=== PATIENT | female | born 1970 | race Asian ===

== ENCOUNTER 2018-07-02 12:55 | Outpatient (REF) | payer OTHER, SELFPAY ==
[2018-07-03 16:09] LABS: Chlamydia Result Negative; GC Result Negative; Specimen Description CERVIX
== END 2018-07-02 13:15 ==
LOC: LBN 12:55
PROVIDERS: PCP Nurse Practitioner; Visit Provider Nurse Practitioner Women's Health
DX: Z11.3 Encounter for screening for infections with a predominantly sexual mode of transmission (principal); R31.9 Hematuria, unspecified
CPT/HCPCS: 87077; 87491; 87591; 87086; 87186

== ENCOUNTER 2018-12-09 16:32 | Outpatient (CLI) | payer OTHER, SELFPAY ==
[2018-12-09 17:05] LABS: Hemoglobin A1C 5.8 % (4.5-6.2)
[2018-12-09 18:11] LABS: Cholesterol 194 mg/dL (50-200); HDL Cholesterol 66 mg/dL (40-60); LDL CHOLESTEROL 105 mg/dL (<100); TSH (W/Ref FT4) 1.53 uIU/mL (0.358-3.74); Triglyceride 128 mg/dL (30-150)
== END 2018-12-09 16:52 ==
PROVIDERS: PCP Nurse Practitioner; Visit Provider Obstetrics & Gynecology Gynecology
DX: Z00.00 Encounter for general adult medical examination without abnormal findings (principal); Z13.220 Encounter for screening for lipoid disorders; Z13.1 Encounter for screening for diabetes mellitus; Z13.29 Encounter for screening for other suspected endocrine disorder
CPT/HCPCS: 36415; 80061; 83721; 83036; 84443

== ENCOUNTER 2018-12-10 16:34 | Outpatient (CLI) | payer OTHER, SELFPAY ==
--- NOTE | 2018-12-10 15:00 | DI.MAMMO_ITS ---
SYMPTOM/DIAGNOSIS: SCREENING MAMMOGRAMS: Mammograms were interpreted according to the usual protocol including computer analysis with CAD system, tomosynthesis and C view imaging. The breasts are heterogeneously dense. No dominant mass or clumped microcalcification is identified in either breast. The current examination is compared with the previous examinations including 10/2017 and there has been no gross interval change in appearance in comparison with the previous studies. CONCLUSION: No specific evidence of malignancy at this time. Routine screening examinations are suggested at yearly intervals in this age group according to the ACS/ACR guidelines. Category 1. Breast density, category C. MQSA ASSESSMENT OF FINDINGS: Negative. Category 1. Patient will receive a letter notifying them of these results. Bi-RADS category C. The breasts are heterogeneously dense, which may obscure small masses.
== END 2018-12-10 16:54 ==
PROVIDERS: PCP Nurse Practitioner; Visit Provider Obstetrics & Gynecology Gynecology
DX: Z12.31 Encounter for screening mammogram for malignant neoplasm of breast (principal)
CPT/HCPCS: 77063; 77067

== ENCOUNTER 2019-10-27 02:07 | Outpatient (CLI) | payer OTHER, SELFPAY ==
--- NOTE | 2019-10-27 | DI.RAD_ITS ---
EXAM: XR LUMBAR SPINE COMPLETE INDICATION: DORSALGIA OF LUMBOSACRAL REGION, M54.5. COMPARISON: No exams were available for comparison TECHNIQUE: 2D digital imaging was performed. FINDINGS: There is normal alignment of the lumbar spine. No acute fracture or subluxation is seen. There are mild degenerative changes in the lumbar spine characterized by small endplate osteophytes and degener ative changes of the facets in the lower lumbar spine. There is no spondylolysis or spondylolisthesi s. The soft tissues are unremarkable. IMPRESSION: Mild degenerative changes in the lumbar spine.
== END 2019-10-27 02:27 ==
PROVIDERS: PCP Nurse Practitioner; Visit Provider Nurse Practitioner
DX: M54.5 Low back pain (principal); M47.816 Spondylosis without myelopathy or radiculopathy, lumbar region
CPT/HCPCS: 72110

== ENCOUNTER 2019-11-16 13:20 | Outpatient (CLI) | payer OTHER, SELFPAY ==
--- NOTE | 2019-11-16 11:15 | DI.RAD_ITS ---
EXAM: XR HIP RT COMPLETE AP PELVIS INDICATION: HIP PAIN. COMPARISON: No exams were available for comparison TECHNIQUE: 2D digital imaging was performed. FINDINGS: There are mild degenerative changes of the right hip. No acute fracture or dislocation is present. The bones are normally mineralized. Soft tissues are unremarkable. DATA REPOSITORY: RADIATION DOSE DELIVERED:
== END 2019-11-16 13:40 ==
PROVIDERS: PCP Nurse Practitioner; Visit Provider Physician Assistant
DX: M25.551 Pain in right hip (principal)
CPT/HCPCS: 73502

== ENCOUNTER 2020-01-22 02:11 | Outpatient (CLI) | payer OTHER, SELFPAY ==
--- NOTE | 2020-01-22 | DI.MAMMO_ITS ---
EXAM: MG MAMMO SCREENING CLINICAL HISTORY: SCREENING, Z12.31 TECHNIQUE: Mammograms were interpreted according to the usual protocol including computer analysis w [employer] CAD system, tomosynthesis and C-view imaging. COMPARISON: FINDINGS: The breasts are of moderate to high density. No dominant mass or clumped microcalcification is ident ified in either breast. Current examination is compared with multiple previous studies including Dec and there has been no gross interval change appearance comparison with the previous examinati ons. IMPRESSION: No specific evidence of malignancy at this time. Routine screening examinations are suggested at yea rly intervals in this age group according to the ACS ACR guidelines. BI-RADS Cat 1 - Negative: Breast Density - Category C - Heterogeneously dense:
== END 2020-01-22 02:31 ==
PROVIDERS: PCP Nurse Practitioner; Visit Provider Nurse Practitioner
DX: Z12.31 Encounter for screening mammogram for malignant neoplasm of breast (principal)
CPT/HCPCS: 77063; 77067

== ENCOUNTER 2020-02-05 19:42 | Outpatient (CLI) | payer OTHER, SELFPAY ==
--- NOTE | 2020-02-05 | DI.US_ITS ---
EXAM: US PELVIS TRANSVAGINAL CLINICAL HISTORY: IRREGULAR PERIODS, N92.6 TECHNIQUE: Transabdominal and transvaginal ultrasound performed using standard protocol. COMPARISON: No exams were available for comparison FINDINGS: The transvaginal images are limited by uterine retroversion. The uterus measures 8 cm in length by 3 cm AP by 4.2 cm transverse. No fibroids are seen. The endometrial stripe is not well seen and measur es approximately 10 millimeters in thickness. The right ovary is normal in size and appearance. The l eft ovary was obscured by bowel gas. No cysts or masses are identified. The kidneys appear normal. Th ere is no evidence of free fluid. IMPRESSION: Limited visualization of the endometrial stripe. Normal sized uterus. Normal appearing right ovary. The left ovary was not able to be visualized, obscured by bowel gas. DATA REPOSITORY:
== END 2020-02-05 20:02 ==
PROVIDERS: PCP Nurse Practitioner; Visit Provider Nurse Practitioner
DX: N92.6 Irregular menstruation, unspecified (principal)
CPT/HCPCS: 76830; 76856

== ENCOUNTER 2020-02-09 18:07 | Emergency (ER) | payer OTHER, SELFPAY ==
[2020-02-09 18:14] VITALS: BP 124/88; PULSE 96; RESP 20; TEMP 37; O2SAT 100
--- NOTE | 2020-02-09 18:20 | W.ED.GENAD ---
Discharge Plan Disposition Patient Disposition: HOME Condition: Good Discharge Details Chief Complaint: EyeProblem Clinical Impression: Corneal abrasion Primary Care Provider: Ericka Rios ED Provider: Flory Rouse Home Meds and New Rx's Prescriptions: Continued albuterol sulfate 90 mcg/actuation HFA aerosol inhaler 2 puff IH QID RF: 0 metronidazole 500 mg tablet 500 mg PO Q12H Qty: 14 RF: 0 fluconazole 150 mg tablet 150 mg PO Q3D Qty: 2 RF: 1 valacyclovir 500 mg tablet 500 mg PO BID RF: 0 mometasone [Elocon] 0.1 % cream 1 applic TP DAILY RF: 0 fluticasone propion-salmeterol [Advair Diskus] 1 EACH blister with device 1 ea Inhalation DAILY RF: 0 mesalamine [Lialda] 1.2 G tablet,delayed release (DR/EC) 1.2 g PO DAILY RF: 0 Discharge Instructions Instructions: Erythromycin (Into the eye), Corneal Abrasion (ED) Additional Instructions: You may use Tylenol and/or ibuprofen as needed for discomfort. Cool compress to help with swelling and discomfort. Please apply erythromycin ointment as instructed by nursing staff every 3-4 hours. Please call [facility] tomorrow to schedule follow-up appointment. If you develop fever/chills, visual changes, purulent discharge or the new/worsening symptom please seek care urgently once again. Referrals: [facility] [Outside] Discharge Data Discharge Date/Time-TO BE ENTERED AT DEPARTURE: 02/09/20 18:53 Medical Decision Making Patient is a pleasant 49-year-old female presents today with chief complaint of left eye pain. She reports this morning when she was in the shower she believes that she may have rubbed her eye rather vigorously and since that time has been having disc. She reports that she did contact her investigation clerk who advised trying eye drops. She reports that she did use these but found that the discomfort got worse. She denies any fevers or chills. No visual changes. Endorses tearing of the eyes. Is noted that they have felt itching, has been rubbing them, pain is worse with blinking. Tetanus is up-to-date. Patient does not use corrective lenses. She has had LASEK eye surgery historically. No contacts. On exam, patient does appear uncomfortable. She does have swelling to the upper lid clear tearing is noted. Lid was everted and no foreign body or laceration was noted. Tetracaine was applied and patient feels much improved. Fluorescein was used for further examination and a corneal abrasion was noted. No foreign body or debris was noted. We will begin the patient on erythromycin ointment. She will [facility]. She was given return precautions. All her questions and concerns were addressed and she is in agreement this plan. HPI General Mode of arrival: ambulatory. Date/Time Provider Initiated Documentation: 02/09/20 18:10. Limitations to Documentation: no limitations. Information obtained by: patient and RN notes reviewed. History of Present Illness 49 year old F presents to the emergency department with the chief complaint of Left eye pain and tearing, described as moderate, with intensity rated at 7. Quality is described as other (Irritated), and is localized to the eyes. Patient reports no radiation. Patient started experiencing this hour(s) and it has been constant. No relieving factors improve symptom(s), No exacerbating factors reported . Patient notes no other symptoms.. Patient did receive the following treatments prior to arrival, none Related Data Home Medications Medication Instructions Recorded Confirmed fluticasone propion-salmeterol 1 ea INHALATION DAILY 07/12/14 02/09/20 [Advair Diskus] mesalamine [Lialda] 1.2 g PO DAILY 07/12/14 02/09/20 albuterol sulfate 90 mcg/actuation 2 puff IH QID 07/02/18 02/09/20 aerosol inhaler fluconazole 150 mg tablet 150 mg PO Q3D #2 tab 04/29/19 02/09/20 metronidazole 500 mg tablet 500 mg PO Q12H #14 tab 09/28/19 02/09/20 mometasone 0.1 % topical cream 1 applic TP DAILY 11/02/19 02/09/20 valacyclovir 500 mg tablet 500 mg PO BID 11/02/19 02/09/20 Previous Rx's Medication Instructions Recorded fluconazole 150 mg tablet 150 mg PO Q3D #2 tab 04/29/19 metronidazole 500 mg tablet 500 mg PO Q12H #14 tab 09/28/19 Allergies Allergy/AdvReac Type Severity Reaction Status Date / Time cat dander Allergy Mild Wheezing Verified 02/09/20 18:16 latex Allergy Mild itching Verified 02/09/20 18:16 nickel Allergy Mild Itching Verified 02/09/20 18:16 Sulfa (Sulfonamide Allergy Hives, Unverified 02/09/20 18:16 Antibiotics) wheezing General Stated Complaint: EyeProblem MEY: 3 Review of Systems Constitutional Constitutional: Reports as per HPI, Denies chills, Denies fatigue, Denies fever(s) and Denies headache(s) Eyes Eyes: Reports as per HPI ENT Ears, Nose, Mouth, and Throat: Denies headache(s) Cardiovascular Cardiovascular: Reports as per HPI, Denies chest pain and Denies lightheadedness Respiratory Respiratory: Denies cough Integumentary/Breasts Skin/Breast: Reports as per HPI, Denies rash, Denies skin pain and Denies skin swelling Neurologic Neurologic: Denies headache(s) and Denies radicular pain Endocrine Endocrine: Denies fatigue [facility] Social History (Updated 01/17/19 @ 09:34 by Martha Zabala MD) Smoking/Tobacco Use Status: Former Tobacco Use Alcohol Intake: never Drug use: Never Substance use type: does not use Number of Children: 4 current occupation: [employer] Current gender identity: female Do you feel safe at home: Yes Do you feel safe in your relationship?: Yes Additional Social history: Children: Paul 24yo, Huseyin - 21 poem writer in [place], Osmin 15yo ADHD, Elyssa 10yo. Female Reproductive History Menstrual control method: permanent sterilization (tubal 2007) History History 4 Para 4 Hx # Term Pregnancies Multiple births Hx # Pregnancies Ectopic pregnancies AB induced Hx Number of Living Children AB spontaneous Exam Const General: cooperative, healthy appearing, comfortable, no acute distress, well developed and well groomed Nutritional Appearance: average body habitus and well nourished Orientation: alert, awake and oriented x3 HENMT Head: normal to inspection, normocephalic and atraumatic Ears: hearing grossly normal bilaterally and external ears normal General nose exam: external nose normal and nares normal Face and sinus: normal facial exam and face symmetric Mouth: oral mucosae normal, lip normal and moist mucous membranes Eyes General: appearance abnormal, both eyes (swelling of left upper eyelid, patient tearing) Visual Barbosa: normal visual barbosa by confrontation Alignment and Position: alignment normal and position normal Periorbital: periorbital findings normal Eyelids: abnormal eyelids and eyelid abnormality left upper eyelid swelling; without erythema and nontender Cornea: corneas abnormal on the left fluorescein used and abrasion central; no contact lens present and without diffuse punctate uptake and fluorescein used Pupils: PERRL and normal by confrontation EOM: EOM intact bilaterally Eyes/upper lids images: 1. area of flouroscein uptake, no FB noted Neck Neck: normal visual inspection and no lymphadenopathy Resp Effort & Inspection: normal respiratory effort, able to speak in complete sentences and no respiratory distress Skin General skin exam: no rashes or lesions noted Neuro General: patient alert, patient awake and patient oriented x3 Cranial Nerves: CN's II-XI intact bilaterally Cognition: normal cognition Speech: speech normal Gait: normal gait Psych Appearance: grossly normal and well kempt Mental Status: mental status grossly normal Speech and Movement: speech and movement normal Course Vital Signs Vital signs: Vital Signs Temperature 37 C 02/09/20 18:14 Pulse 96 H 02/09/20 18:14 Respiratory Rate 20 02/09/20 18:14 Blood Pressure 124/88 02/09/20 18:14 Pulse Oximetry 100 02/09/20 18:14 Temperature 37 C 02/09/20 18:14 Temperature Source Temporal Artery Scan 02/09/20 18:14 Pulse 96 H 02/09/20 18:14 Respiratory Rate 20 02/09/20 18:14 Respiratory Effort Non-Labored 02/09/20 18:16 Blood Pressure 124/88 02/09/20 18:14 Blood Pressure Position Sitting 02/09/20 18:14 Pulse Oximetry 100 02/09/20 18:14 Oxygen Delivery Method Room Air 02/09/20 18:14 Oxygen Flow Rate 0 02/09/20 18:14 Pain Level 7 02/09/20 18:14
[2020-02-09] MEDS: Erythromycin Ophth Oint 3.5 GM TUBE OS (18:45)
== END 2020-02-09 18:53 | disposition home or self-care (01) ==
PROVIDERS: Emergency Provider Physician Assistant; PCP Nurse Practitioner
DX: S05.02XA Injury of conjunctiva and corneal abrasion without foreign body, left eye, initial encounter (principal); X50.9XXA Other and unspecified overexertion or strenuous movements or postures, initial encounter
CPT/HCPCS: 99283

== ENCOUNTER 2020-02-10 06:58 | Outpatient (CLI) | payer OTHER, SELFPAY ==
[2020-02-10 07:48] LABS: Abs Immature Grans 0.01 k/cumm (0.0-0.09); Absolute Basophil Count 0.08 k/cumm (0.0-0.2); Absolute Eosinophil Count 0.49 k/cumm (0.0-0.7); Absolute Lymphocyte Count 1.64 k/cumm (1.2-3.4); Absolute Monocyte Count 0.65 k/cumm (0.11-0.7); Absolute Neutrophil Count 3.31 k/cumm (1.2-6.7); Basophils % 1.3; Eosinophils % 7.9; HCT 40.1 % (36.0-46.0); HGB 13.2 g/dL (12.0-15.5); Immature Grans % 0.2 %; Lymphocytes % 26.5; Mean Corp. HGB Concentration 32.9 g/dL (32.0-36.0); Mean Corpuscular Hemoglobin 29.3 pg (27.0-33.0); Mean Corpuscular Volume 88.9 fL (80-95); Mean Platelet Volume 9.6 fL (8.0-11.0); Monocytes % 10.5; Neutrophils % 53.6; Platelet Count 351 x1000/uL (130-400); RBC 4.51 m/cumm (4.00-5.20); RBC Distribution Width 13.8 % (11.7-14.6); White Blood Cell Count 6.18 k/cumm (4.4-10.8)
[2020-02-10 08:40] LABS: Iron 96 ug/dL (50-170)
[2020-02-10 08:53] LABS: ALT 22 U/L (14-59); AST 5 U/L (15-37); Albumin 3.9 g/dL (3.4-5.0); Alkaline Phosphatase 43 U/L (46-116); Anion Gap 4.5 mmol/L (3-11); BUN 12 mg/dL (7-18); Bilirubin, Total 0.5 mg/dL (0.2-1.0); CO2 30.5 mmol/L (21.0-32.0); CREATININE 0.81 mg/dL (0.55-1.02); Calcium 9.1 mg/dL (8.5-10.1); Calculated LDL 126 mg/dL (<100); Chloride 104 mmol/L (98-107); Cholesterol 215 mg/dL (<200); Ferritin 18 ng/mL (8-252); Glucose 94 mg/dL (74-106); HDL Cholesterol 64 mg/dL (40-60); Potassium 4.1 mmol/L (3.5-5.1); Sodium 139 mmol/L (136-145); TSH 3.02 uIU/mL (0.36-3.74); Total Protein 7.6 g/dL (6.4-8.2); Triglyceride 127 mg/dL (<150)
[2020-02-11 05:02] LABS: Vitamin D 25 Total 30.7 ng/ml (30-100)
== END 2020-02-10 07:18 ==
PROVIDERS: PCP Nurse Practitioner; Visit Provider Nurse Practitioner
DX: Z00.00 Encounter for general adult medical examination without abnormal findings (principal); Z13.220 Encounter for screening for lipoid disorders; R53.82 Chronic fatigue, unspecified
CPT/HCPCS: 36415; 80053; 80061; 82306; 82728; 83540; 84443; 85025

== ENCOUNTER 2020-04-06 18:03 | Outpatient (REF) | payer OTHER, SELFPAY ==
[2020-04-06 16:44] LABS: Bilirubin Negative (Negative); Blood Moderate (Negative); Clarity Clear (Clear); Glucose Negative (Negative); Ketones Negative (Negative); Leukocyte Esterase Negative (Negative); Nitrite Negative (Negative); Specific Gravity 1.015 (1.005-1.025); Urobilinogen 0.2 EU/dL (Up TO 0.2); pH 6.5 (5-8)
[2020-04-06 16:56] LABS: Bacteria Negative HPF (Negative); C & S Indicated? No; Casts Negative LPF (Negative); Crystals Negative HPF (Negative); Epithelial Cells Few HPF (Negative); Mucus Negative (Negative); WBC 0-2 HPF (0-5)
== END 2020-04-06 18:23 ==
LOC: LBN 18:03
PROVIDERS: PCP Nurse Practitioner; Visit Provider Nurse Practitioner Women's Health
DX: R30.0 Dysuria (principal)
CPT/HCPCS: 81003; 81015

== ENCOUNTER 2021-06-10 14:47 | Outpatient (REF) | payer OTHER, SELFPAY ==
[2021-06-10 15:06] LABS: Bilirubin Negative (Negative); Blood Large (Negative); Clarity Clear (Clear); Glucose Negative (Negative); Ketones Negative (Negative); Leukocyte Esterase Negative (Negative); Nitrite Negative (Negative); Urobilinogen 0.2 EU/dL (Up TO 0.2); pH 6.5 (5-8)
[2021-06-10 15:15] LABS: Bacteria Negative HPF (Negative); C & S Indicated? No; Crystals Negative HPF (Negative); Epithelial Cells Few HPF (Negative); Mucus Negative (Negative); RBC >50 HPF (0-2); WBC 0-2 HPF (0-5)
== END 2021-06-10 14:48 | disposition home or self-care (01) ==
LOC: LBN 14:47
PROVIDERS: PCP Nurse Practitioner; Visit Provider Nurse Practitioner Family
DX: N76.0 Acute vaginitis (principal); N39.0 Urinary tract infection, site not specified
CPT/HCPCS: 81003; 81015; 87480; 87510; 87660

== ENCOUNTER 2021-07-26 16:25 | Outpatient (REF) | payer OTHER, SELFPAY ==
--- NOTE | 2021-07-26 15:40 | PAPFT_PTH ---
PATIENT: Danielle Louie LOC: [facility]#:[id number] AGE/SX: 51/F ROOM: RE07/26/[address]: Arabella Boss NP : 1970 BED: DIS: 07/26/2021 SPEC #: [id number] RECD: 07/26/21 18:30 STATUS: FLORENCIO REQ #: [id number] ALBA: 07/26/21 15:[address]: Gera ALBERTO,Arabella DEPT: [facility] Cytology RECD BY: Zoe Farah ENTERED: 07/26/21 18:30 SP TYPE: PAPFT OTHR DR: Ericka Rios Tissues: 1 - CX/ENDOCX FOR PAP SMEARS Procedures: PAP THIN PREP/UVM Screening HPV DNA PROBE Comments: [id number]
== END 2021-07-26 16:26 | disposition home or self-care (01) ==
LOC: LBN 16:25
PROVIDERS: PCP Nurse Practitioner; Visit Provider Nurse Practitioner Women's Health
DX: Z12.4 Encounter for screening for malignant neoplasm of cervix (principal); Z11.51 Encounter for screening for human papillomavirus (HPV)
CPT/HCPCS: 88142; 87624

== ENCOUNTER 2021-08-11 12:11 | Outpatient (CLI) | payer OTHER, SELFPAY ==
--- NOTE | 2021-08-11 11:33 | DI.MAMMO_ITS ---
Exam(s) MAMMO SCREENING EXAM: MAMMO SCREENING CLINICAL HISTORY: screening, Z12.39 TECHNIQUE: Bilateral full field digital CC and MLO mammographic images were obtained with 3D tomosyn thesis and utilizing computer aided detection (CAD). COMPARISON: Available for comparison. FINDINGS: Masses/Architectural Distortion: None seen. Microcalcifications: No suspicious pleomorphic-type are seen. Skin Thickening/Nipple Retraction: None. IMPRESSION: 1. No significant interval change with no specific features of malignancy noted. 2. Unless there is more urgent need, screening mammography is recommended, as per [employer] guidelines. BI-RADS Category 1 - Negative Breast Density - Category C - Heterogeneously dense Breast density category C or D implies that the patient has dense breast tissue. Dense breast tissue is very common and is not abnormal but dense breast tissue can make it harder to find cancer on a ma mmogram. Also, dense breast tissue may increase their breast cancer risk. This information about the result of the mammogram report was provided to the patient to raise their awareness. Use this report when you speak with the patient about their risks for breast cancer, which includes their family hist ory. At that time, you may recommend for more screening tests (Ultrasound or MRI) as they might be us eful based on their risk. A negative radiographic report should not delay biopsy if a dominant or clinically suspicious mass is present. Up to ten percent of cancers are not identified on mammography. A negative report may reinforce clinical impression. Adenosis and dense breasts may obscure an underlying neoplasm. False positive reports average 6 to 10%. Patient will receive a letter notifying them of these results.
== END 2021-08-11 12:31 ==
PROVIDERS: PCP Nurse Practitioner; Visit Provider Nurse Practitioner Women's Health
DX: Z12.31 Encounter for screening mammogram for malignant neoplasm of breast (principal); R92.8 Other abnormal and inconclusive findings on diagnostic imaging of breast
CPT/HCPCS: 77063; 77067

== ENCOUNTER 2021-12-01 21:08 | Outpatient (CLI) | payer OTHER, SELFPAY ==
[2021-12-01 16:14] LABS: Abs Immature Grans 0.01 10^3/uL (0.0-0.06); Absolute Basophil Count 0.11 10^3/uL (0.0-0.2); Absolute Lymphocyte Count 1.74 10^3/uL (1.2-3.4); Absolute Monocyte Count 0.64 10^3/uL (0.1-0.8); Absolute Neutrophil Count 3.83 10^3/uL (1.2-6.7); Basophils % 1.7; Eosinophils % 4.5; HCT 40.8 % (36.0-46.0); HGB 13.3 g/dL (11.2-15.7); Immature Grans % 0.2; Lymphocytes % 26.2; MCH 30.3 pg (27.0-33.0); MCHC 32.6 % (32.0-36.0); MCV 92.9 fL (80-95); MPV 9.4 fL (8.0-11.0); Monocytes % 9.7; Neutrophils % 57.7; Nucleated RBC 0 %; Platelet Count 325 10^3/uL (130-400); RBC 4.39 10^6/uL (3.93-5.22); RDW 13.2 % (11.7-14.6); RDW-SD 45.3 fL; WBC 6.63 10^3/uL (4.4-10.8)
[2021-12-01 17:35] LABS: ALT 15 U/L (14-59); AST 9 U/L (15-37); Albumin 4.1 g/dL (3.4-5.0); Alkaline Phosphatase 55 U/L (46-116); BUN 17 mg/dL (7-18); Bilirubin, Total 0.3 mg/dL (0.2-1.0); Calcium 8.8 mg/dL (8.5-10.1); Calculated LDL 123 mg/dL (<100); Chloride 103 mmol/L (98-107); Cholesterol 216 mg/dL (<200); Estimated GFR 58.69 (mL/min/1.73m2); Glucose 108 mg/dL (74-106); HDL Cholesterol 63 mg/dL (40-60); Potassium 4.6 mmol/L (3.5-5.1); Sodium 140 mmol/L (136-145); TSH 1.18 uIU/mL (0.36-3.74); Total Protein 7.8 g/dL (6.4-8.2); Triglyceride 152 mg/dL (<150)
== END 2021-12-01 21:09 | disposition home or self-care (01) ==
LOC: LBO 21:10
PROVIDERS: PCP Nurse Practitioner; Visit Provider Nurse Practitioner
DX: Z00.00 Encounter for general adult medical examination without abnormal findings (principal); E78.5 Hyperlipidemia, unspecified; K51.90 Ulcerative colitis, unspecified, without complications; Z13.6 Encounter for screening for cardiovascular disorders; R68.83 Chills (without fever)
CPT/HCPCS: 36415; 80053; 80061; 84443; 85025

== ENCOUNTER 2022-07-01 09:48 | Emergency (ER) | payer OTHER, SELFPAY ==
[2022-07-01 09:54] VITALS: BP 156/101; PULSE 78; RESP 18; TEMP 36.7; O2SAT 100
--- NOTE | 2022-07-01 10:00 | DI.CT_ITS ---
Exam(s) CT ABDOMEN PELVIS W EXAM: CT ABDOMEN PELVIS W CLINICAL HISTORY: Bloody diarrhea, hx Ulc Colitis. TECHNIQUE: Imaging Protocol: Axial computed tomography images with coronal and sagittal reformatted images were created and reviewed CONTRAST MATERIAL: Intravenous: Omnipaque 100cc Oral: Yes COMPARISON: No exams were available for comparison FINDINGS: VISUALIZED LUNG BASES: There is a 6 millimeter nodule in the lateral basal segment of the left lower lobe (series 4/image 10). ABDOMEN: There is no ascites. LIVER: There are no focal hepatic lesions evident . GALLBLADDER/BILIARY: No obvious gallbladder pathology. CBD is not dilated. PANCREAS: No evidence of pancreatic mass nor dilatation of the pancreatic duct. SPLEEN: Spleen is not enlarged. No obvious intrasplenic lesions. Splenic and portal veins are paten t. ADRENALS: There are no significant adrenal masses. KIDNEYS:No cysts evident. No solid renal masses. No calculi nor hydronephrosis.. ABDOMINAL AORTA: Abdominal aorta is not enlarged. LYMPH NODES:There is no retroperitoneal nor paraaortic adenopathy. ABDOMINAL WALL: No evidence of significant anterior abdominal wall nor inguinal hernia. GI: No evidence of small-bowel obstruction. Administered oral contrast has just reached the cecum. There is abundant fecal material in the colon. The mid-lower sigmoid and rectum exhibit typical fat halo sign consistent with submucosal fat deposition with a middle layer of submucosal fat (low-attenu ation -25 HU in this case) surrounded by an inner layer (mucosa) and outer layer (muscularis propria and serosa) of soft tissue attenuation. This is typically seen in the setting of chronic ulcerative colitis or Crohn's disease. There is also dilated vasa recta in this region which are highly compati ble with inflammatory bowel disease. This appears could be confined to the rectosigmoid and without similar involvement of the small bowel loops. PELVIS: GI: Appendix not identifiedno evidence of sigmoid diverticulitis. LYMPH NODES: There is no intrapelvic nor inguinal adenopathy. REPRODUCTIVE: Uterus and adnexal regions unremarkable. No free fluid in the pelvis. URINARY BLADDER: No calculi nor obvious masses evident OSSEOUS: No significant osseous lesions or fractures on the sacroiliac joints appear unremarkable. IMPRESSION: 1. There is circumferential fat halo sign throughout the rectosigmoid with prominent vasa recta in th is region, consistent with chronic inflammatory bowel disease changes, most probably chronic ulcerati ve colitis, given the absence of findings in the distal small bowel. See above discussion. 2. Similar finding not seen more proximally in the colon nor in the small bowel and there is no evide nce of diarrhea: Indeed, there is abundant fecal material in the proximal and mid colon. RADIATION DOSE DELIVERED: 824.71mGy.cm Total DLP DATA REPOSITORY: All CT scans at this facility are submitted to the National Radiology Data Registry (NRDR) Dose Index Registry (DIR) with the [employer] (ACR). RADIATION OPTIMIZATION: All CT scans at this facility use at least one of these dose optimization te chniques: automated exposure control; mA and/or kV adjustment per patient size (includes targeted exa ms where dose is matched to clinical indication); or iterative reconstruction.
--- NOTE | 2022-07-01 10:02 | W.ED.GENAD ---
Discharge Plan Disposition Patient Disposition: HOME Condition: Improving Discharge Details Clinical Impression: Ulcerative colitis Primary Care Provider: Ericka Rios ED Provider: Tavon Samaniego Home Meds and New Rx's Prescriptions: New mesalamine [Lialda] 1.2 gram tablet,delayed release (DR/EC) 4.8 g PO DAILY 7 Days Qty: 28 0RF mesalamine with cleansing wipe [Rowasa] 4 gram/60 mL enema kit 4 g VT QHS 7 Days Qty: 420 0RF Continued albuterol sulfate 90 mcg/actuation HFA aerosol inhaler 2 puff IH QID mometasone [Elocon] 0.1 % cream 1 applic TP DAILY PRN estradiol [Vagifem] 10 mcg tablet 10 mcg vaginal .COMPLEX Qty: 24 0RF Rx Instructions: 10 mcg vaginally twice weekly; fluticasone propion-salmeterol [Advair Diskus] 1 EACH blister with device 1 ea Inhalation DAILY acetaminophen 500 mg Tablet 1,000 mg PO Q6H PRN Held mesalamine [Lialda] 1.2 G tablet,delayed release (DR/EC) 1.2 g PO DAILY Hold Instructions: Resume on 07/08/22. Increase to 4.8g/day No Action valacyclovir 500 mg tablet 500 mg PO BID PRN Rx Instructions: Current med list: 1 tablet orally TID Discharge Instructions Instructions: Ulcerative Colitis (ED) Additional Instructions: [place] diet. I discussed your case with [facility] gastroenterology who will reach out to you tomorrow. Increase your Lialda to 4.8 g each morning and begin nightly retention enema as prescribed. Return to the ER for any acute concerns Stand Alone Forms: Work Release Referrals: Warren Martínez [ [facility] STAFF PHYSICIAN] - Medical Decision Making 51-year-old female with a history of ulcerative colitis. Due to the pandemic pressures on clinical medicine she has been lost to follow-up for approximately 4 years. She reports 2 to 3 weeks of crampy lower abdominal pain and bloody diarrhea. She had been off of her mesalamine until 4 days ago when she began to take it 1.2 g twice a day. Not currently taking other medications. She arrives to the ER with a pressure 150/100, pulse and temperature are normal. She has some lower abdominal tenderness on exam and rectal exam reveals normal rectal tone, no masses, mucus present that is faintly guaiac positive. Laboratories note a white count of 5, hematocrit 42, platelets 307. Chemistries are reassuring, CRP is 1.29. CT images: There is evidence of constipation and stigmata of chronic ulcerative colitis in the sigmoid colon and rectum. No acutely concerning abnormality. Please see the formal report. No pericolonic fatty stranding noted. Patient had improvement with IV fluids & acetaminophen. Case discussed with on-call GI at [facility]. They have asked us to add stool studies and including C. difficile, fecal pathogens, fecal calprotectin, fecal infectious work-up. We will increase the patient's mesalamine to 4.8 g daily in the mornings and add mesalamine enema at night. She will follow-up in GI this week. She is stable and appropriate for discharge to home Lab Data Lab results reviewed: Yes I reviewed the patient's lab results. Labs: Laboratory Results - last 24 hr 07/01/22 07/01/22 07/01/22 10:15 10:15 10:15 WBC 5.78 RBC 4.60 Hgb 13.8 Hct 42.4 MCV 92 MCH 30.0 MCHC 32.5 RDW 12.9 Plt Count 307 MPV 9.2 Immature Gran % 0.2 Neutrophils % 70.3 Lymphocytes % 9.3 Monocytes % 13.3 Eosinophils % 5.7 Basophils % 1.2 Nucleated RBC % 0.0 Absolute Neutrophils 4.06 Absolute Lymphocytes 0.54 L Absolute Monocytes 0.77 Absolute Eosinophils 0.33 Absolute Basophils 0.07 Sodium 139 Potassium 3.4 L Chloride 101 Carbon Dioxide 30.0 Anion Gap 8.0 BUN 14 Creatinine 0.7 Est GFR (CKD-EPI 2020) 105.30 Glucose 92 Calcium 9.1 Magnesium 1.8 Total Bilirubin 0.3 AST 27 ALT 30 Alkaline Phosphatase 65 C-Reactive Protein 1.29 H Total Protein 8.9 H Albumin 4.2 Urine Color Yellow Urine Clarity Clear Urine pH 6.0 Ur Specific [place] 1.010 Urine Protein Negative Urine Ketones Negative Urine Blood Moderate H Urine Nitrite Negative Urine Bilirubin Negative Urine Urobilinogen 0.2 Ur Leukocyte Esterase Negative Urine RBC 10-20 H Urine WBC 0-2 Ur Epithelial Cells Rare Urine Crystals Negative Urine Bacteria Rare Urine Casts Negative Urine Mucus Negative Ur Culture Indicated? No Urine Glucose Negative HPI General Mode of arrival: ambulatory. Date/Time Provider Initiated Documentation: 07/01/22 09:50. Limitations to Documentation: no limitations. Information obtained by: patient. History of Present Illness 51 year old F presents to the emergency department with the chief complaint of Flare of ulcerative colitis with bloody diarrhea for 2 to 3-week, described as moderate and similar to prior episodes, and is localized to the abdomen. Patient reports no radiation. Patient started experiencing this day(s) and it has been intermittent. No relieving factors improve symptom(s), Eating worsens symptoms . Patient notes fever/chills and malaise. Patient did receive the following treatments prior to arrival, none Related Data Home Medications Medication Instructions Recorded Confirmed fluticasone 250 mcg-salmeterol 50 1 ea inhalation DAILY 07/12/14 07/01/22 mcg/dose blistr powdr for inhalation (Advair Diskus) mesalamine 1.2 gram tablet,delayed 1.2 g PO DAILY 07/12/14 07/01/22 release (Lialda) albuterol sulfate 90 mcg/actuation 2 puff inhalation QID 07/02/18 07/01/22 aerosol inhaler mometasone 0.1 % topical cream 1 applic topical DAILY PRN 11/02/19 07/01/22 (Elocon) valacyclovir 500 mg tablet 500 mg PO BID PRN 11/02/19 07/01/22 estradiol 10 mcg vaginal tablet 10 mcg vaginal .COMPLEX #24 tabs 02/14/22 07/01/22 (Vagifem) acetaminophen 500 mg tablet 1,000 mg PO Q6H PRN 07/01/22 07/01/22 mesalamine 1.2 gram tablet,delayed 4.8 g PO DAILY 1 week #28 tabs 07/01/22 release (Lialda) mesalamine rectal susp enema with 4 g (60 mL) VT QHS 1 week #420 ea 07/01/22 cleansing wipes 4 gram/60 mL kit (Rowasa rectal suspension enema) Previous Rx's Medication Instructions Recorded estradiol 10 mcg vaginal tablet 10 mcg vaginal .COMPLEX #24 tabs 02/14/22 (Vagifem) mesalamine 1.2 gram tablet,delayed 4.8 g PO DAILY 1 week #28 tabs 07/01/22 release (Lialda) mesalamine rectal susp enema with 4 g (60 mL) VT QHS 1 week #420 ea 07/01/22 cleansing wipes 4 gram/60 mL kit (Rowasa rectal suspension enema) Allergies Allergy/AdvReac Type Severity Reaction Status Date / Time cat dander Allergy Mild Wheezing Verified 07/01/22 09:59 latex Allergy Mild itching Verified 07/01/22 09:59 nickel Allergy Mild Itching Verified 07/01/22 09:59 Sulfa (Sulfonamide Allergy Hives, Unverified 07/01/22 09:59 Antibiotics) wheezing General Stated Complaint: Abd Prob MEY: 3 Review of Systems Narrative: States she is poorly compliant with treatment, no regular care for the past 5 years. Has malaise, generalized weakness, cramping and bloody diarrhea. 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 [place] teeth extracted Family History Maternal Grandfather Pancreatic cancer Mother Aneurysm brain. Hyperlipidemia Hypertension Father Heart disease Social History Smoking/Tobacco Use Status: Former Tobacco Use Smoking risk assessment performed?: Yes Alcohol Intake: never Drug use: Never Substance use type: does not use Number of Children: 4 current occupation: [employer] Current gender identity: female Do you feel safe at home: Yes Do you feel safe in your relationship?: Yes Additional Social history: Children: Paul 24yo, Huseyin - 21 chef de partie in [place], Osmin 15yo ADHD, Elyssa 10yo. Female Reproductive History Menstrual control method: permanent sterilization History History 4 Para 4 Hx # Term Pregnancies Multiple births Hx # Pregnancies Ectopic pregnancies AB induced Hx Number of Living Children AB spontaneous Exam Narrative Exam Narrative: GEN: awake, alert, oriented 3. Pleasant, well groomed, interactive. HEAD: Normocephalic, atraumatic ENT: Mucous membranes moist, oropharynx unremarkable, External ear exam unremarkable EYES: PERRL, EOMI NECK: Full ROM, no LOLIS, no menigismus CHEST/RESP: Nontender, clear to auscultation bilateral, no wheeze/rhonchi/rales CARDIOVASCULAR: RRR, no murmur, rub jay jay. 2+ Rad pulse bilateral ABDOMEN: Soft, discrete Lower suprapubic tenderness on palpation without rebound or, no mass. +Bowel sounds EXT: Full ROM, no edema, no rash Neuro: Grossly normal neurologic exam, conversant, interactive. Psych: Speech fluent, thoughts congruent, affect normal Course Vital Signs Vital signs: Vital Signs Temperature 36.7 C 07/01/22 09:54 Pulse 78 07/01/22 09:54 Respiratory Rate 18 07/01/22 09:54 Blood Pressure 156/101 H 07/01/22 09:54 Pulse Oximetry 100 07/01/22 09:54 Temperature 36.7 C 07/01/22 09:54 Temperature Source Oral 07/01/22 09:54 Pulse 78 07/01/22 09:54 Respiratory Rate 18 07/01/22 09:54 Respiratory Effort Non-Labored 07/01/22 09:58 Blood Pressure 156/101 H 07/01/22 09:54 Blood Pressure Position Sitting 07/01/22 09:54 Pulse Oximetry 100 07/01/22 09:54 Oxygen Delivery Method Room Air 07/01/22 09:54 Oxygen Flow Rate 0 07/01/22 09:54 Pain Level 2 07/01/22 09:54
[2022-07-01 10:26] LABS: Abs Immature Grans 0.01 10^3/uL (0.0-0.06); Absolute Basophil Count 0.07 10^3/uL (0.0-0.2); Absolute Eosinophil Count 0.33 10^3/uL (0.0-0.7); Absolute Lymphocyte Count 0.54 10^3/uL (1.2-3.4); Absolute Monocyte Count 0.77 10^3/uL (0.1-0.8); Absolute Neutrophil Count 4.06 10^3/uL (1.2-6.7); Basophils % 1.2; Eosinophils % 5.7; HCT 42.4 % (36.0-46.0); HGB 13.8 g/dL (11.2-15.7); Immature Grans % 0.2; Lymphocytes % 9.3; MCHC 32.5 % (32.0-36.0); MCV 92 fL (80-95); MPV 9.2 fL (8.0-11.0); Monocytes % 13.3; Neutrophils % 70.3; Platelet Count 307 10^3/uL (130-400); RDW 12.9 % (11.7-14.6); RDW-SD 43.4 fL; WBC 5.78 10^3/uL (4.4-10.8)
[2022-07-01 10:27] LABS: Bilirubin Negative (Negative); Blood Moderate (Negative); Clarity Clear (Clear); Glucose Negative (Negative); Ketones Negative (Negative); Leukocyte Esterase Negative (Negative); Nitrite Negative (Negative); Urobilinogen 0.2 EU/dL (Up TO 0.2)
[2022-07-01] MEDS: ACETAMINOPHEN 1,000 MG/100 ML BTL 400 MG IVPB (10:29)
[2022-07-01] MEDS: Normal Saline 1,000 ML 125 ML IV (10:30)
[2022-07-01 10:33] LABS: Bacteria Rare HPF (Negative); C & S Indicated? No; Casts Negative LPF (Negative); Crystals Negative HPF (Negative); Epithelial Cells Rare HPF (Negative); Mucus Negative (Negative); WBC 0-2 HPF (0-5)
[2022-07-01 10:40] LABS: ALT 30 U/L (14-59); AST 27 U/L (15-37); Albumin 4.2 g/dL (3.4-5.0); Alkaline Phosphatase 65 U/L (46-116); BUN 14 mg/dL (7-18); Bilirubin, Total 0.3 mg/dL (0.2-1.0); C-Reactive Protein 1.29 mg/dL (0.0-0.3); CREATININE 0.7 mg/dL (0.55-1.02); Calcium 9.1 mg/dL (8.5-10.1); Chloride 101 mmol/L (98-107); Glucose 92 mg/dL (74-106); Magnesium 1.8 mg/dL (1.8-2.4); Potassium 3.4 mmol/L (3.5-5.1); Sodium 139 mmol/L (136-145); Total Protein 8.9 g/dL (6.4-8.2)
[2022-07-01] MEDS: Breeza Beverage 473 ML BTL PO ×2 (12:08→12:09)
[2022-07-01] MEDS: Gastrografin 120 ML BTL PO (12:08)
[2022-07-01] MEDS: Omnipaque 350 MG/ML 100 ML BTL IJ (12:09)
--- NOTE | 2022-07-01 12:49 | DI.VRAD_ITS ---
PROCEDURE INFORMATION: Exam: CT Abdomen And Pelvis With Contrast Exam date and time: 07/01/2022 12:05 PM Age: 51 years old Clinical indication: Fever and other: Diarrhea; Abdominal pain; Other: Lower abd pain; Patient HX: HX of ulcerative colitis. TECHNIQUE: Imaging protocol: Computed tomography of the abdomen and pelvis with contrast. Radiation optimization: All CT scans at this facility use at least one of these dose optimization techniques: automated exposure control; mA and/or kV adjustment per patient size (includes targeted exams where dose is matched to clinical indication); or iterative reconstruction. Contrast material: OMNIPAQUE 350; Contrast volume: 100 ml; Contrast route: INTRAVENOUS (IV); Other contrast: Oral, Gastrograffin , 25 mL; COMPARISON: US PELVIS TRANSVAGINAL 02/05/2020 9:43 AM FINDINGS: Liver: Normal. Gallbladder and bile ducts: Normal. Pancreas: Normal. Spleen: Normal. Adrenal glands: Normal. Kidneys and ureters: Normal. Stomach and bowel: Normal stomach. Normal small bowel. Retained desiccated stool and mild colonic distension as far as the level of the sigmoid colon. The sigmoid colon is nearly entirely collapsed, featureless and there is submucosal fatty hypertrophy. Minimal intra-colonic fluid in the sigmoid and rectum. No pericolonic fatty stranding. Appendix: No evidence of appendicitis. Intraperitoneal space: No ascites. No pneumoperitoneum. No peritoneal lesion. Vasculature: Normal. Lymph nodes: Numerous similar reactive appearing lymph nodes scattered throughout retroperitoneum and in the perirectal region and sigmoid mesocolon. Urinary bladder: Unremarkable. Reproductive: Normal uterus and ovaries. Bones/joints: No acute fracture or suspicious osseous lesion. Soft tissues: Unremarkable. IMPRESSION: Abnormalities in the colon include CT evidence of constipation and stigmata of chronic ulcerative colitis with respect to the sigmoid colon and rectum but no acutely concerning abnormality. There is no significant intra colonic fluid compatible with the diarrheal state. Dictated and Authenticated by: Jah Sampson MD. Ordering:JERRELL Montes De Oca MD
== END 2022-07-01 14:00 | disposition home or self-care (01) ==
PROVIDERS: Emergency Provider Emergency Medicine; PCP Nurse Practitioner
DX: K51.90 Ulcerative colitis, unspecified, without complications (principal)
CPT/HCPCS: 80053; 96361; 96374; 99285; 74177; 81003; 81015; 83735; 85025; 86140; 99284; J0131; J3490

== ENCOUNTER 2022-12-21 10:19 | Outpatient (CLI) | payer OTHER, SELFPAY ==
--- NOTE | 2022-12-21 | DI.MAMMO_ITS ---
Exam(s) MAMMO SCREENING EXAM: MAMMO SCREENING CLINICAL HISTORY: SCREENING, Z12.31 TECHNIQUE: Mammograms were interpreted according to the usual protocol including computer analysis w [employer] CAD system, tomosynthesis and C-view imaging. COMPARISON: 2016 through 2020 FINDINGS: The breasts are composed of scattered fibroglandular densities, Breast Density category B. No suspicious masses or suspicious microcalcifications are seen. No skin thickening or abnormal axillary lymph nodes are seen. There has been no significant change from prior exams. IMPRESSION: BI-RADS Category 1, Negative mammogram Yearly screening mammography is recommended. Breast Density - Category B, scattered fibroglandular densities. A negative radiographic report should not delay biopsy if a dominant or clinically suspicious mass is present. Up to ten percent of cancers are not identified on mammography. A negative report may reinforce clinical impression. Adenosis and dense breasts may obscure an underlying neoplasm. False positive reports average 6 to 10%. Patient will receive a letter notifying them of these results.
--- OUTSIDE RECORDS SUMMARY | 2022-12-21 10:22 | XMS_ITS | Continuity of Care Document ---
Author Name Unknown Organization [facility] Address [address] [place] [address] Encounter [facility] NBR [id number] Date(s): 06/11/22 - 06/11/22 [facility] [address] [place] [address]- Discharge Disposition: Home or Self Care Attending Physician: CANDE PEARCE Attending Physician: Sanya Solo DO Referring Physician: CANDE PEARCE Assessment and Plan Future Appointments
--- OUTSIDE RECORDS SUMMARY | 2022-12-21 10:23 | XMS_ITS ---
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 2016-08-16 BMI 25.28 kg/m2 2016-04-18 BMI 25.01 kg/m2 2015-11-30 BMI 25.20 kg/m2 2015-10-24 BMI 24.97 kg/m2 2015-10-12 BMI 25.35 kg/m2 2015-09-14 BMI 25.24 kg/m2 2015-09-07 BMI 25.81 kg/m2 2015-01-10 BMI 25.77 kg/m2 2014-12-07 BMI 24.78 kg/m2 2014-11-18 BMI 24.97 kg/m2 2014-11-12 BMI 25.05 kg/m2 2014-10-21 BMI 23.70 kg/m2 2014-02-09 BMI 23.55 kg/m2 2014-02-05 BMI 25.16 kg/m2 2013-09-04 BMI 25.05 kg/m2 2013-07-28 BMI 24.39 kg/m2 2013 BMI 24.39 kg/m2 2013-07-01 BMI 24.58 kg/m2 2013-03-04 BMI 24.39 kg/m2 2012-12-23 BMI 23.62 kg/m2 2012-11-27 BMI 23.66 kg/m2 2012-05-05 BMI 24.32 kg/m2 2012-04-17 BMI 26.50 kg/m2 2012-04-07 BMI 26.66 kg/m2 2012-03-18 BMI 26.54 kg/m2 2012-03-03 BMI 28.73 kg/m2 2012-01-07 BMI 28.50 kg/m2 2011-11-08 BMI 29.40 kg/m2 2011-10-08 BMI 29.77 kg/m2 2011-10-02 BMI 29.00 kg/m2 2011-03-13 BMI 28.66 kg/m2 2011-02-22 BMI 32.04 kg/m2 2010-04-12 BMI N/A kg/m2 2007-06-12 BMI N/A kg/m2 2006-06-05 BMI N/A kg/m2 2006-03-21 Temperature 98.6 degrees Fahrenheit Temperature 99 degrees Fahrenheit 2019-10-21 Temperature 98.5 degrees Fahrenheit Temperature 99.7 degrees Fahrenheit Temperature 98.9 degrees Fahrenheit Temperature 99.0 degrees Fahrenheit Temperature 98.3 degrees Fahrenheit Temperature 99.7 degrees Fahrenheit Temperature 99.0 degrees Fahrenheit Temperature 100.3 degrees Fahrenheit 2016-08 Temperature 98.9 degrees Fahrenheit Temperature 98.3 degrees Fahrenheit Temperature 99.6 degrees Fahrenheit Temperature 98.8 degrees Fahrenheit Temperature 98.8 degrees Fahrenheit Temperature 98.9 degrees Fahrenheit Temperature 99.7 degrees Fahrenheit Temperature 99.9 degrees Fahrenheit Temperature 99.5 degrees Fahrenheit Temperature 98 degrees Fahrenheit 2014-11-12 Temperature 98.6 degrees Fahrenheit Temperature 98.2 degrees Fahrenheit Temperature 98.4 degrees Fahrenheit Temperature 98.4 degrees Fahrenheit Temperature 97.4 degrees Fahrenheit Temperature 98.0 degrees Fahrenheit Temperature 99.2 degrees Fahrenheit Temperature 97.5 degrees Fahrenheit Temperature 97.6 degrees Fahrenheit Temperature 98.1 degrees Fahrenheit Temperature TYMPANIC:98.1 degrees Fahrenheit 2012-05-05 Temperature TYMPANIC:98.3 degrees Fahrenheit 2012-04-17 Temperature TYMPANIC:97.4 degrees Fahrenheit 2012-04-07 Temperature TYMPANIC:98.3 degrees Fahrenheit 2012-03-18 Temperature TYMPANIC:98.5 degrees Fahrenheit 2012-03-03 Temperature TYMPANIC:97.2 degrees Fahrenheit 2012-01-07 Temperature TYMPANIC:97.8 degrees Fahrenheit 2011-11-08 Temperature TYMPANIC:98 degrees Fahrenheit Temperature TYMPANIC:99.2 degrees Fahrenheit 2011-10-02 Temperature 99.4 degrees Fahrenheit Temperature 98 degrees Fahrenheit 2011-02-22 Temperature 96.8 degrees Fahrenheit Temperature 102.0 degrees Fahrenheit 2010-04 Temperature 98.4 degrees Fahrenheit Temperature 98.5 degrees Fahrenheit Temperature 98.6 degrees Fahrenheit Temperature 96.6 degrees Fahrenheit Temperature 97.9 degrees Fahrenheit Temperature 98.3 degrees Fahrenheit Temperature N/A degrees Fahrenheit 4 Temperature N/A degrees Fahrenheit 4 Temperature N/A degrees Fahrenheit 3 Temperature N/A degrees Fahrenheit 2006-03-09 3 Heart Rate 74 /min 2020-01-18 Heart Rate 90 /min 2019-10-21 Heart Rate 69 /min 2019-06-15 Heart Rate 80 /min 2019-06-08 Heart Rate 80 /min 2019-04-10 Heart Rate 80 /min 2019-03-30 Heart Rate 67 /min 2018-12-19 Heart Rate 70 /min 2017-08-19 Heart Rate 80 /min 2016-12-24 Heart Rate 78 /min 2016-08-16 Heart Rate 74 /min 2016-04-18 Heart Rate 75 /min 2015-11-30 Heart Rate 72 /min 2015-10-24 Heart Rate 80 /min 2015-10-12 Heart Rate 87 /min 2015-09-14 Heart Rate 95 /min 2015-09-07 Heart Rate 76 /min 2015-01-10 Heart Rate 86 /min 2014-12-07 Heart Rate 68 /min 2014-11-18 Heart Rate 72 /min 2014-11-12 Heart Rate 74 /min 2014-10-21 Heart Rate 80 /min 2014-02-09 Heart Rate 69 /min 2014-02-05 Heart Rate 88 /min 2013-09-04 Heart Rate 73 /min 2013-07-28 Heart Rate 87 /min 2013 Heart Rate 71 /min 2013-07-01 Heart Rate 90 /min 2013-03-04 Heart Rate 86 /min 2012-12-23 Heart Rate 85 /min 2012-11-27 Heart Rate 79 /min 2012-05-05 Heart Rate 83 /min 2012-04-17 Heart Rate 87 /min 2012-04-07 Heart Rate 96 /min 2012-03-18 Heart Rate 89 /min 2012-03-03 Heart Rate 70 /min 2012-01-07 Heart Rate 88 /min 2011-11-08 Heart Rate 70 /min 2011-10-08 Heart Rate 76 /min 2011-10-02 Heart Rate 96 /min 2011-03-13 Heart Rate 92 /min 2011-02-22 Heart Rate 82 /min 2010-10-18 Heart Rate 108 /min 2010-05-01 Heart Rate 89 /min 2010-04-12 Heart Rate 78 /min 2010-03-01 Heart Rate 84 /min 2009-11-18 Heart Rate 83 /min 2009-06-28 Heart Rate 76 /min 2008-11-04 Heart Rate 90 /min 2008-10-15 Heart Rate N/A /min 2007-06-12 Heart Rate N/A /min 2007-02-05 Heart Rate N/A /min 2006-12-11 Heart Rate N/A /min 2006-06-05 Heart Rate N/A /min 2006-04-11 Heart Rate N/A /min 2006-03-21 Respiratory Rate 18 /min 2020-01-18 Respiratory Rate 16 /min 2019-10-21 Respiratory Rate 16 /min 2019-06-15 Respiratory Rate 16 /min 2019-06-08 Respiratory Rate 16 /min 2019-03-30 Respiratory Rate 18 /min 2018-12-19 Respiratory Rate 16 /min 2017-08-19 Respiratory Rate 16 /min 2016-12-24 Respiratory Rate 18 /min 2016-08-16 Respiratory Rate 16 /min 2016-04-18 Respiratory Rate 16 /min 2015-11-30 Respiratory Rate 16 /min 2015-10-24 Respiratory Rate 18 /min 2015-10-12 Respiratory Rate 16 /min 2015-09-14 Respiratory Rate 16 /min 2015-09-07 Respiratory Rate 18 /min 2015-01-10 Respiratory Rate 18 /min 2014-12-07 Respiratory Rate 16 /min 2014-11-18 Respiratory Rate 20 /min 2014-11-12 Respiratory Rate 18 /min 2014-10-21 Respiratory Rate 18 /min 2014-02-09 Respiratory Rate 18 /min 2014-02-05 Respiratory Rate 18 /min 2013-09-04 Respiratory Rate 16 /min 2013-07-28 Respiratory Rate 16 /min 2013 Respiratory Rate 20 /min 2013-07-01 Respiratory Rate 16 /min 2013-03-04 Respiratory Rate 16 /min 2012-12-23 Respiratory Rate 16 /min 2012-11-27 Respiratory Rate 16 /min 2012-05-05 Respiratory Rate 17 /min 2012-04-17 Respiratory Rate 16 /min 2012-04-07 Respiratory Rate 16 /min 2012-03-18 Respiratory Rate 18 /min 2012-03-03 Respiratory Rate 16 /min 2012-01-07 Respiratory Rate 16 /min 2011-11-08 Respiratory Rate 18 /min 2011-10-08 Respiratory Rate 16 /min 2011-10-02 Respiratory Rate 18 /min 2011-03-13 Respiratory Rate 18 /min 2011-02-22 Respiratory Rate 18 /min 2010-10-18 Respiratory Rate 18 /min 2010-04-12 Respiratory Rate 18 /min 2010-03-01 Respiratory Rate 18 /min 2009-11-18 Respiratory Rate 18 /min 2008-11-04 Respiratory Rate 16 /min 2008-10-15 Respiratory Rate N/A /min 2007-06-12 Respiratory Rate N/A /min 2007-02-05 Respiratory Rate N/A /min 2006-12-11 Respiratory Rate N/A /min 2006-06-05 Respiratory Rate N/A /min 2006-03-21 Oximetry 99 % 2020-01-18 Oximetry 98 % 2019-10-21 Oximetry 97 % 2019-06-15 Oximetry 99 % 2019-06-08 Oximetry 99 % 2019-04-10 Oximetry 97 % 2019-03-30 Oximetry 100 % 2018-12-19 Oximetry 100 % 2017-08-19 Oximetry 99 % 2016-12-24 Oximetry 99 % 2016-08-16 Oximetry 99 % 2016-04-18 Oximetry 98 % 2015-11-30 Oximetry 98 % 2015-10-24 Oximetry 98 % 2015-10-12 Oximetry 99 % 2015-09-14 Oximetry 97 % 2015-09-07 Oximetry 100 % 2015-01-10 Oximetry 99 % 2014-12-07 Oximetry 100 % 2014-11-18 Oximetry 99 % 2014-11-12 Oximetry 98 % 2014-10-21 Oximetry 98 % 2014-02-09 Oximetry 98 % 2014-02-05 Oximetry 98 % 2013-09-04 Oximetry 99 % 2013-07-28 Oximetry 99 % 2013-07-01 Oximetry 100 % 2013-03-04 Oximetry 100 % 2012-12-23 Oximetry 98 % 2012-11-27 Oximetry 98 % 2012-05-05 Oximetry 98 % 2012-04-17 Oximetry 98 % 2012-04-07 Oximetry 98 % 2012-03-18 Oximetry 98 % 2012-03-03 Oximetry 98 % 2012-01-07 Oximetry 98 % 2011-11-08 Oximetry 98 % 2011-10-08 Oximetry 98 % 2011-10-02 Oximetry 98 % 2011-03-13 Oximetry 98 % 2011-02-22 Oximetry 97 % 2010-10-18 Oximetry 98% % 2010-05-01 Oximetry 98 % 2010-04-12 Oximetry 98 % 2010-03-01 Oximetry 97 % 2009-11-18 Oximetry 100 % 2009-06-28 Oximetry 98 % 2008-11-04 Oximetry 98 % 2008-10-15 Oximetry N/A % 2007-06-12 Oximetry N/A % 2006-03-21 Blood pressure systolic 122 mm Hg Blood pressure diastolic 80 mm Hg 2020-01 MEDICATIONS Medication Instructions Dosage Frequency Start Date End Date Duration Status Erythromycin 5 MG/GM Ophthalmic every 3-4 hours 1 application into the lower eyelid of affected eye 03 Feb, 2020 Active Vitamin D 50 MCG (2000 UT) Orally Once a day 1 tablet 24h 05 Feb, 2020 30 day(s) Active Advair Diskus 100 mcg-50 mcg inhaled BID 1 puff(s) 12h 90 days Act ozzie Elocon 0.1% applied topically once a day 1 application 24h Active Ventolin HFA 90 mcg/inh inhaled 4 times a day prn 2 puff(s) Jul, Active valACYclovir HCl 500 MG Orally tid 1 tablet 8h 15 Mar, 2019 Active Lialda 1.2 g orally once a day PRN 2 tab(s) Active PROCEDURES Procedure Date Ordered Result Body Site No HTN DX,BP <120/80 (76112) December 24, 2016 No HTN DX,BP <120/80 (49686) Oct 21, 2019 EXC TR-EXT B9 THAI 1.1-2 CM Jun 08, 2019 Tob non-user ([id number]) Apr 18, 2016 Tob non-user ([id number]) December 24, 2016 LIPID PANEL Apr 17, 2012 No HTN DX,BP <120/80 (26512) Apr 18, 2016 Tob non-user ([id number]) December 19, 2018 Tob non-user ([id number]) January 18, 2020 BMI normal (83270) Aug 16, 2016 Tob non-user ([id number]) Aug 19, 2017 Med Rec done (05714) Aug 16, 2016 UA- TEST (chg code 39246) Apr 18, 2016 UA-DIPSTICK (chg code 51815) January 07, 2012 Tob non-user ([id number]) Oct 21, 2019 Tob non-user ([id number]) March 30, 2019 Hep A [facility] 2013 BMI elevated, counseled (64554) January 18, 2020 BMI elevated, counseled (57444) December 19, 2018 Med Rec done (62041) December 19, 2018 Tob non-user ([id number]) Jun 15, 2019 Med Rec done (61227) January 18, 2020 Dep screen neg (25050) Aug 16, 2016 BMI elevated, counseled (48936) Aug 19, 2017 Med Rec done (09708) Aug 19, 2017 Med Rec done (62538) Jun 08, 2019 SBIRT screen w intervention (55585) January 18, 2020 Med Rec done (33032) Oct 21, 2019 Dep screen neg (64659) Jun 15, 2019 Med Rec done (48678) Apr 10, 2019 UA-DIPSTICK (chg code 59034) Apr 12, 2010 RAPID STREP SCREEN(54771) May 01, 2010 Med Rec done (29639) December 24, 2016 Med Rec done (99478) Apr 18, 2016 -Influenza split STATE preser free>35mos (36825) Jul 102012 CYTOPATH, C/V, THIN LAYER March 13, 2011 BMI elevated, counseled (45048) Apr 10, 2019 OCCULT BLOOD DIAGNOSTIC ([id number]) Aug 19, 2017 SBIRT screen w intervention (54471) Aug 19, 2017 UA-DIPSTICK (chg code 74182) December 19, 2018 UA-DIPSTICK (chg code 05513) January 18, 2020 RAPID STREP SCREEN(08089) March 13, 2011 -Influenza FLUARIX STATE 19+yrs Jul 28, 2013 SBIRT SCREEN negative Aug 16, 2016 Tdap STATE Boostrix 7yrs or older of age [address] Jul 28, 2013 Tob non-user ([id number]) Aug 16, 2016 Dep scrn pos, plan documented (39135) Apr 18, 2016 Pro.cl.INJ. SC/IM,Per 250 Med,RHC(81891) February 05, 2014 SBIRT SCREEN negative Aug 19, 2017 PSYTX PT&/FAMILY 60min (12726) Oct 15, 2016 PSYTX PT&/FAMILY 60min (35575) Jun 26, 2016 UA-DIPSTICK (chg code 97484) Oct 15, 2008 UA-DIPSTICK (chg code 72623) Oct 24, 2015 PSYTX PT&/FAMILY 60min (00359) November 11, 2017 PSYTX PT&/FAMILY 60 MINUTES April 08, 2017 PSYTX PT&/FAMILY 60 MINUTES May 18, 2019 PSYTX PT&/FAMILY 60min (70268) February 13, 2016 PSYTX PT&/FAMILY 60 MINUTES February 09, 2019 PSYTX PT&/FAMILY 60 MINUTES Jul 22, 2017 UA-DIPSTICK (chg code 35679) Aug 19, 2017 PSYTX PT&/FAMILY 60min (65095) May 01, 2017 PSYTX PT&/FAMILY 30 MINUTES (88162) Sep 17, 2019 PSYTX PT&/FAMILY 60 MINUTES March 01, 2017 PSYTX PT&/FAMILY 60min (20714) Aug 08, 2020 SBIRT screening 2016-08-16 N/A PSYTX PT&/FAMILY 60min (29107) January 02, 2017 SBIRT screening 2017-08-19 N/A PSYTX PT&/FAMILY 60 MINUTES May 05, 2018 PSYTX PT&/FAMILY 60 MINUTES May 27, 2018 PSYTX PT&/FAMILY 60 MINUTES Jun 09, 2018 PSYTX PT&/FAMILY 60min (24536) Jun 08, 2019 Tob non-user ([id number]) Apr 10, 2019 N.CL,STATE inj.fee,(Single or Combination)(34734) Jul 28, 2013 SBIRT screen w intervention (41791) Aug 16, 2016 SBIRT SCREEN negative December 19, 2018 BMI elevated, counseled (16623) Apr 18, 2016 BMI normal (10945) December 24, 2016 Med Rec done (93772) Jun 15, 2019 BMI elevated, counseled (13745) Oct 21, 2019 UA-DIPSTICK (chg code 46029) March 01, 2010 RAPID STREP SCREEN(59235) March 18, 2012 PSYTX PT&/FAMILY 60min (76833) Aug 29, 2016 Hep A STATE PEDI Havrix 15063 February 05, 2014 UA-DIPSTICK (chg code 02825) Nov 04, 2008 PSYTX PT&/FAMILY 60min (16254) May 23, 2016 Med Rec done (60429) March 30, 2019 SBIRT SCREEN negative January 18, 2020 -zzSTATE,inj.fee,(Single or combination) 2013 No HTN DX,BP <120/80 (78133) Aug 16, 2016 Dep scrn pos, plan documented (17961) January 18, 2020 PSYTX PT&/FAMILY 60min (77902) March 06, 2016 PSYTX PT&/FAMILY 60min (98913) March 14, 2016 PSYTX PT&/FAMILY 60min (77866) March 29, 2016 PSYTX PT&/FAMILY 60min (76068) April 03, 2016 PSYTX PT&/FAMILY 60min (18899) Jun 20, 2020 PSYTX PT&/FAMILY 60min (67864) January 02, 2016 PSYTX PT&/FAMILY 60 MINUTES February 08, 2016 PSYTX PT&/FAMILY 60min (13937) February 22, 2016 No HTN DX,BP <120/80 (24057) January 18, 2020 No HTN DX,BP <120/80 (55973) Aug 19, 2017 Tob non-user ([id number]) Jun 08, 2019 SBIRT screening 2018-12-19 negativen SBIRT screening 2020-01-18 N/A PSYTX PT&/FAMILY 60min (46862) May 22, 2017 PSYTX PT&/FAMILY 60 MINUTES Jun 24, 2017 PSYTX PT&/FAMILY 60 MINUTES Aug 12, 2017 PSYTX PT&/FAMILY 60 MINUTES Oct 30, 2016 PSYTX PT&/FAMILY 60min (52119) November 21, 2016 PSYTX PT&/FAMILY 60min (18586) December 12, 2016 PSYTX PT&/FAMILY 60 MINUTES February 06, 2017 PSYTX PT&/FAMILY 60min (88714) Apr 17, 2016 PSYTX PT&/FAMILY 60 MINUTES May 08, 2016 PSYTX PT&/FAMILY 60min (77336) Jul 06, 2016 PSYTX PT&/FAMILY 60min (19350) Jul 25, 2020 CONTRACEPTIVE PILLS CONTROL December 25, 2006 RESULTS Name Result Date Reference Range US Transvaginal Pelvic Image Accessible CBC WITH AUTO DIFF 2020-02-10 CORRECT ANC WBC 6.18 HGB 13.2 HCT 40.1 PLATELET 351 RBC MCV MCH MCHC RDW MPV ANC #IG #LYMPH #EOS #MONO #BASO NEUTROPHIL % IG% LYMPHOCYTE % MONOCYTE % EOSINOPHIL % BASOPHIL % ATYP LYMPH PLT MORPH PROMYELO MACRO MICRO NRBC HYPO BLAST ANISO BAND BASO EOS LYMPH META MONO MYELO POIK RBC MORPH SEG MANUAL DIFF #IMM GRAN %IMM GRAN COMPMET 2020-02-10 ALBUMIN 3.9 ALKPHOS 43 ALT 22 AST 5 BUN 12 CALCIUM CHLORIDE CARBON DIOXIDE CREATININE STANDARDIZED 0.81 DIRECT BILIRUBIN ESTIMATED GLOMERULAR FILTRATION >60 GLUCOSE 94 POTASSIUM 4.1 SODIUM 139 TOTAL BILIRUBIN TOTAL PROTEIN EGFR INTERPRETATION BUN/CREAT CORRECT AGE zzGLUCOSE zzCREATININE zzSODIUM zzPOTASSIUM zzCHLORIDE zzCO2 zzCALCIUM zzTOTAL PROTEIN zzALBUMIN zzTOTAL BILI zzALT zzAST zzALKALINE PHOS BUN*/CREAT* LIPID W/ CALCULATED LDL 2020-02-10 CHOLESTEROL 215 TRIGLYCERIDE 127 HDL 64 LDL CALC 126 LDL DIRECT CHOL/HDL zzCholesterol zzHdl zzTriglycerides zzChol/HDL LDL CALC* TSH 2020-02-10 THYROID STIMULATING HORMONE 3.02 IRON SATURATION 2020-02-10 FESAT TIBC IRON 96 FERRITIN 2020-02-10 Ferritin FERRITIN 18 VITAMIN D (25-HYDROXY) TOTAL 2020-02-10 VITAMIN D, 25-HYDROXY (CALCIFEROL) 30.7 zzVitamin D (25-hydroxy) zzVIT D,25-OH, D2 zzVIT D, 25-OH,D3 MG Mammo Screening 2020-01-22 Image Accessible CYTO: PAP SMEAR W/Reflex HPV (3yr regimen) 2020-01-18 RESULT Pap smear is a scree Thin Prep(R) Theatrical Variety Agent s high-risk HPV test s liquid based ThinPr X Lumbar Spine 4V 2019-10-27 Image Accessible Path:Excision of Lesion 2019-06-08 Findings: UA DIPSTICK ONLY-with CPE/ICC 2018-12-19 COLOR yellow CLARITY clear SPECIFIC GRAVITY 1.010 GLUCOSE neg BILIRUBIN neg KETONES neg BLOOD mod PH 7.0 PROTEIN neg UROBILINOGEN 0.2 LEUKOCYTES neg NITRITES neg UA-DIP PLUS MICRO W/REFLEX 2018-12-19 AMORPH NEG NEG BACT NEGATIVE NEGATIVE SELENA Negative NEGATIVE BLD Moderate NEGATIVE CAST NEG NEG CLARITY Clear CLEAR COL Yellow YELLOW LUIS ENRIQUE NEG NEG EPI NEG NEG GLU. Negative NEGATIVE KET Negative NEGATIVE CRISTIAN Negative NEGATIVE MUC NEGATIVE NEGATIVE NIT Negative NEGATIVE PH 7.0 5.0-8.0 PROT Negative NEGATIVE RBCS RARE NEG SG 1.010 1.001-1.035 UROBILINOGEN 0.2 E.U./dL 0.2-1.0 WBCS NEGATIVE NEGATIVE MG Mammo Screening 2018-12-10 Image Accessible MULTIPLE LABS 2018-12-09 HEMOGLOBIN A1C 2018-12-09 HGA1C 5.8 CALC. MEAN GLUC HB2 reviously reported u MG Mammo Screening 2017-10-25 Image Accessible Occult Blood Random-DIAGNOSTIC (NON SCREENING) 2017-08-19 Occult Blood Random neg OCCULT BLOOD UA DIPSTICK ONLY-with CPE/ICC 2017-08-19 COLOR yellow CLARITY clear SPECIFIC GRAVITY 1.010 GLUCOSE neg BILIRUBIN neg KETONES neg BLOOD mod PH 6.5 PROTEIN neg UROBILINOGEN 0.2 LEUKOCYTES neg NITRITES neg CYTO: PAP SMEAR W/HPV (5yr regimen) 08-[address] Head w/o ([id number]) Image Accessible MULTIPLE LABS 2016-09-17 CBC WITH AUTO DIFF 2016-09-17 CORRECT ANC WBC 6.87 HGB 12.6 HCT 37.9 PLATELET 345 RBC 4.33 MCV 87.5 MCH 29.1 MCHC 33.2 RDW 14.8 MPV 9.3 ANC #IG #LYMPH 1.78 #EOS 0.45 #MONO 0.68 #BASO 0.04 NEUTROPHIL % 56.9 IG% 0.1 LYMPHOCYTE % 25.9 MONOCYTE % 9.9 EOSINOPHIL % BASOPHIL % ATYP LYMPH PLT MORPH PROMYELO MACRO MICRO NRBC HYPO BLAST ANISO BAND BASO EOS LYMPH META MONO MYELO POIK RBC MORPH SEG MANUAL DIFF #IMM GRAN %IMM GRAN COMPMET 2016-09-17 ALBUMIN ALKPHOS ALT 15 AST 11 BUN 13 CALCIUM 8.6 CHLORIDE CARBON DIOXIDE 28.0 CREATININE STANDARDIZED 0.75 DIRECT BILIRUBIN ESTIMATED GLOMERULAR FILTRATION GLUCOSE 91 POTASSIUM 4.2 SODIUM 142 TOTAL BILIRUBIN 0.34 TOTAL PROTEIN EGFR INTERPRETATION BUN/CREAT CORRECT AGE 47 zzGLUCOSE zzCREATININE zzSODIUM zzPOTASSIUM zzCHLORIDE zzCO2 zzCALCIUM zzTOTAL PROTEIN zzALBUMIN zzTOTAL BILI zzALT zzAST zzALKALINE PHOS BUN*/CREAT* LIPID W/ CALCULATED LDL 2016-09-17 CHOLESTEROL 169 TRIGLYCERIDE 71 HDL 71 LDL CALC LDL DIRECT 91 CHOL/HDL zzCholesterol zzHdl zzTriglycerides zzChol/HDL LDL CALC* UA DIPSTICK ONLY-with CPE/ICC 2016-08-16 COLOR yellow CLARITY clear SPECIFIC GRAVITY 1.015 GLUCOSE neg BILIRUBIN neg KETONES 15 BLOOD mod PH 6.0 PROTEIN ne UROBILINOGEN 0.2 LEUKOCYTES nwg NITRITES neg CYTO: PAP SMEAR-Screening 2016-08-17 RESULT CHLAMYDIA/GC RRNA(URINE) 2016-08-16 CHLAMYDIA TRACHOMATIS, FARRAH Negative N egative UA-DIP PLUS MICRO W/REFLEX 2016-08-16 UA-Urine ,IN OFFICE 2016-04-18 RESULT neg UA DIPSTICK ONLY-DIAGNOSTIC 2015-10-24 Color yellow Clarity clear Specific [place] 1.005 Glucose. neg Bilirubin neg Ketones neg Blood mod PH 6.5 Protein neg Urobilinogen 0.2 Nitrite neg Leukocytes neg UA-DIP PLUS MICRO W/REFLEX 2015-10-24 CULTURE GENITAL 2015-10-24 GENPROBE 2015-10-24 CYTO: PAP SMEAR-Screening 2015-07-26 RESULT MR Upper Ext L w/o ([id number]) 2014-11-24 Image Accessible X Elbow L 3V 2014-10-22 Image Accessible UA DIPSTICK ONLY-DIAGNOSTIC 2014-02-09 Color orange Clarity Specific [place] 1.010 Glucose. 100mg/dL Bilirubin neg Ketones neg Blood moderate PH 7.0 Protein neg Urobilinogen 0.2 Nitrite pos Leukocytes neg UA-DIP PLUS MICRO W/REFLEX 2014-02-09 UA DIPSTICK ONLY-with CPE/ICC 2013-07-28 COLOR yellow CLARITY CLEAR SPECIFIC GRAVITY 1.015 GLUCOSE NEG BILIRUBIN NEG KETONES NEG BLOOD LARGE PH 5.5 PROTEIN NEG UROBILINOGEN 0.2 LEUKOCYTES NEG NITRITES NEG UA-DIP PLUS MICRO W/REFLEX 2013-07-28 MRA Brain W/O contrast CPT-05084 CBC WITH AUTO DIFF 2012-04-17 COMPMET 2012-04-17 LIPID W/ CALCULATED LDL 2012-04-17 TSH 2012-04-17 THYROID STIMULATING HORMONE 0.937 0.360-3.740 UA DIPSTICK ONLY-with CPE/ICC 2012-04-17 COLOR yellow CLARITY clear SPECIFIC GRAVITY 1.005 GLUCOSE neg BILIRUBIN neg KETONES neg BLOOD mod PH 5.5 PROTEIN neg UROBILINOGEN 0.2 LEUKOCYTES neg NITRITES neg UA DIPSTICK ONLY-DIAGNOSTIC Color yellow Clarity Specific [place] 1.015 Glucose. neg Bilirubin neg Ketones neg Blood moderate PH 5.5 Protein neg Urobilinogen 0.2 Nitrite neg Leukocytes trace CTScan Stone protocol (Abd w /o & Pelvis w/o) CPT 73293 2012-01-07 COLONOSCOPY,a RAPID STREP SCREEN,IN OFFICE (2 Swab System) Result UA DIPSTICK ONLY-with CPE/ICC COLOR yellow CLARITY SPECIFIC GRAVITY 1.005 GLUCOSE neg BILIRUBIN neg KETONES neg BLOOD mod PH 5.0 PROTEIN neg UROBILINOGEN 0.2 LEUKOCYTES neg NITRITES neg CBC WITHOUT DIFF (Hemogram) 2011-03-13 HEMATOCRIT 40.0 37.0-47.0 LIVER FUNCTION TESTS 2011-03-13 RAPID STREP PLATE 2011-03-13 UA-MICRO W/REFLEX 2011-03-13 AMORPHOUS NEG NEG RAPID STREP SCREEN,AT HOSPITAL RAPID STREP SCREEN neg STREP A PARVOVIRUS B19 IGG & M ANTIBODIES 2011-02 RAPID STREP PLATE 2011-02-22 RAPID STREP SCREEN,IN OFFICE (2 Swab System) 2010-05-01 Result pos RAPID STREP PLATE 2010-05-01 SEND TO ER: SEND TO IC? Day1-Exam positive Final:CX observation SEND TO PHARM? UA-COLONY COUNT ONLY 2010-04-12 UA DIPSTICK ONLY-DIAGNOSTIC 2010-04-12 Color lt yellow Clarity Specific [place] <1.005 Glucose. neg Bilirubin neg Ketones neg Blood mod PH 6.5 Protein neg Urobilinogen 0.2 Nitrite neg Leukocytes neg UA DIPSTICK ONLY-DIAGNOSTIC Color yellow Clarity Specific [place] 1005 Glucose. neg Bilirubin neg Ketones neg Blood large PH 7.0 Protein neg Urobilinogen 0.2 Nitrite neg Leukocytes moderate UA-COLONY COUNT ONLY 2010-03-01 SENSITIVITIES 2010-03-01 Amikacin <=2 S TSH 2009-11-18 THYROID STIMULATING HORMONE 1.545 0.340-5.600 TIBC 2009-11-18 FOLATE 2009-11-18 FERRITIN 2009-11-18 IRON 2009-11-18 CBC WITH AUTO DIFF 2009-11-18 UA-COLONY COUNT ONLY 2008-12-19 COLONY COUNT ANTIBIOTIC: Day1 Day 2 Isolate1 SOURCE: UA W/MICROSCOP 2008-12-19 Amorphous 0 0-TRACE UA DIPSTICK ONLY-DIAGNOSTIC 2008-11-04 Color yellow Clarity Specific [place] 1.010 Glucose. neg Bilirubin neg Ketones neg Blood mod PH 6.5 Protein neg Urobilinogen 0.2 Nitrite neg Leukocytes trace UA-COLONY COUNT ONLY 2008-10-15 COLONY COUNT ANTIBIOTIC: Day1 Day 2 Isolate1 SOURCE: UA W/MICROSCOP Amorphous 0 0-TRACE PROLACTIN 2008-05-12 PROLACTIN UA W/MICROSCOP 2007-10-22 Amorphous 0 0-TRACE LIPID W/ CALCULATED LDL TSH TSH 1.648 0.34-5.60 CYTO: PAP SMEAR-Screening 2006-06-05 RESULT UA DIPSTICK ONLY-DIAGNOSTIC Color lt yellow Clarity Specific [place] 1.010 Glucose. neg Bilirubin neg Ketones neg Blood large PH 6.5 Protein neg Urobilinogen 0.2 Nitrite neg Leukocytes neg CYTO: PAP SMEAR-Screening 2005-03-30 RESULT LIPID W/ CALCULATED LDL CHOLESTEROL 199 TRIGLYCERIDE 168 HDL 56 LDL CALC LDL DIRECT 116 CHOL/HDL zzCholesterol zzHdl zzTriglycerides zzChol/HDL LDL CALC* TSH THYROID STIMULATING HORMONE 1.02 HEMOGLOBIN AND HEMATOCRIT HEMATOCRIT HEMOGLOBIN UA-DIP W/REFLEX SOURCE BILIRUBIN NEG BLOOD NEG CLARITY Clear COLOR Yellow GLUCOSE NEG KETONES 15 LEUKOCYTES NEG NITRITES NEG PH 7.0 PROTEIN NEG SPECIFIC GRAVITY 1.015 UROBILINOGEN 0.2 UROBILINOGEN CBC WITH AUTO DIFF CORRECT ANC WBC HGB HCT PLATELET RBC MCV MCH MCHC RDW MPV ANC #IG #LYMPH #EOS #MONO #BASO NEUTROPHIL % IG% LYMPHOCYTE % MONOCYTE % EOSINOPHIL % BASOPHIL % ATYP LYMPH PLT MORPH PROMYELO MACRO MICRO NRBC HYPO BLAST ANISO BAND BASO EOS LYMPH META MONO MYELO POIK RBC MORPH SEG MANUAL DIFF #IMM GRAN %IMM GRAN GLUCOSE SHERMAN 1 HR GLUCOSE zzGLUC 1HR PP GLUCOSE 1 HOUR 82 GLUCOSE FASTING TSH THYROID STIMULATING HORMONE 0.96 OB Panel Hepatitis B surface antigen RPR Negative WBC 8.3 RBC 4.02 HGB 12.7 HCT 36.0 MCV 89.5 MCH 31.6 MCHC 35.3 RDW 12.8 PLT 326.0 MPV 7.5 Neutrophil % Lymphocyte % Monocyte % Eosinophil % Basophil % ANC # ABO Type A Rh Type POS Antibody Screen NEG Rubella Immune HIV 1/2 ANTIBODIES HIV Screen 4th Generation wRfx HIV 1/0/2 ABS QUAL HIV 1/0/2 ABS HIV 1/0/2 ABS INDEX VALUE HIV 1/2 L[facility] TSH THYROID STIMULATING HORMONE 0.77 UA-DIP W/REFLEX SOURCE BILIRUBIN NEG BLOOD MOD CLARITY Clear COLOR Straw GLUCOSE NEG KETONES NEG LEUKOCYTES NEG NITRITES NEG PH 6.5 PROTEIN NEG SPECIFIC GRAVITY 1.005 UROBILINOGEN 0.2 UROBILINOGEN UA-COLONY COUNT ONLY COLONY COUNT To Micro ANTIBIOTIC: Day1 Day 2 Isolate1 SOURCE: RAPID STREP SCREEN,IN OFFICE (2 Swab System) Result To Micro RAPID STREP SCREEN,IN OFFICE (2 Swab System) Result To Micro LIPID W/ CALCULATED LDL CHOLESTEROL 170 TRIGLYCERIDE 166 HDL 71 LDL CALC LDL DIRECT 83 CHOL/HDL zzCholesterol zzHdl zzTriglycerides zzChol/HDL LDL CALC* TSH THYROID STIMULATING HORMONE 1.38 C.DIFF TOXIN A/B C.Diff toxin A/B Negative C.Diff Toxin A C.Diff Toxin B CREATININE Creatinine 0.8 EGFR AMYLASE AMYLASE 55 UA-DIP W/REFLEX SOURCE BILIRUBIN NEG BLOOD 2+ CLARITY Clear COLOR Yellow GLUCOSE NEG KETONES NEG LEUKOCYTES NEG NITRITES NEG PH 7.0 PROTEIN NEG SPECIFIC GRAVITY 1.015 UROBILINOGEN 0.2 UROBILINOGEN BUN BUN BUN 11 BUN* HCG QUALITATIVE SERUM (+/-) HCG SERUM NEG LIVER FUNCTION TESTS ALBUMIN 3.9 ALKALINE PHOSPHATASE 77 ALT 30 AST 13 DIRECT BILIRUBIN 0.2 TOTAL BILIRUBIN 0.5 TOTAL PROTEIN 8.3 zzTOTAL BILI TOTAL PROTEIN* ALBUMIN* TOTAL BILI* DIRECT BILI*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
--- OUTSIDE RECORDS SUMMARY | 2022-12-21 10:23 | XMS_ITS ---
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 Active 74389171 Problem Tonsillolith J35.8 Active 9459854 Problem Rhytides L90.8 Active [id number] ALLERGIES Substance Reaction Event Type Date Status sulfer itchy/wheezing Non Drug Allergy Oct, Ac tive ENCOUNTERS Encounter Location Date Diagnosis [facility] [address] [facility] [address] [place], [place] [id number] Dec, Rhytides L90.8 [facility] [address] [place], [place] [id number] Jul, Rhytides L90.8 [facility] [address], [address] [place], [place] [id number] January, Rhytides L90.8 [facility] [address] [place] [id number] Oct, Abnormal auditory perception of both ears H93.293 and Tonsillolith J35.8 [facility] [address] [place], [place] [id number] Oct, N E [facility] [address], [address] [place], [place] [id number] Jul, Rhytides L90.8 [facility] [address] [place], [place] [id number] Feb, Rhytides L90.8 IMMUNIZATIONS No Known Immunizations SOCIAL HISTORY Never Assessed REASON FOR REFERRAL FUNCTIONAL STATUS PLAN OF CARE Activity Details VITAL SIGNS Height 5 ft 0 in in 2020-10-26 Weight 145 lbs 2020-10-26 Heart Rate 73 /min 2020-10-26 Oximetry 99 2020-10-26 BMI 28.32 kg/m2 2020-10-26 Blood pressure systolic 116 mm Hg Blood pressure diastolic 74 mm Hg 2020-10 MEDICATIONS Unknown Medications PROCEDURES Procedure Date Ordered Result Body Site DYSPORT/BOTOX FIRST SEGMENT Jul 11, 2020 DYSPORT/BOTOX FIRST SEGMENT February 12, 2019 DYSPORT/BOTOX FIRST SEGMENT December 25, 2021 DYSPORT/BOTOX FIRST SEGMENT Jul 24, 2021 DYSPORT/BOTOX FIRST SEGMENT January 09, 2021 RESULTS No Results REASON FOR VISIT c botox, C BOTOX, ENT- C botox, ENT Cosmetic Botox, ENT Cosmetic Botox, Cosmetic Botox. , Cosmetic Botox, AUD AUDIOGRAM-REF BY DR. HE, ALYSSA-KATE, Concerns with her hearing, Intermittent tonsillolith formation, Cosmetic Botox, botox, ENT botox Insurance Providers Health Insurance Type Health Plan Insurance Address Health Plan Insurance Phone Health Plan Insurance Name Health Plan Coverage Dates Member ID Patient Relationship to Subscriber Patient Address Patient Phone Patient Name Patient Date of Subscriber ID Subscriber Name Subscriber Date of Group No [employer] S [employer] [address] [place] [id number] [employer] self Danielle Woodruff [facility] [id number]
--- OUTSIDE RECORDS SUMMARY | 2022-12-21 10:23 | XMS_ITS | Continuity of Care Document ---
Author Name Unknown Organization [facility] Address [address] [place] [address] Care Team Providers Care Machine Operator Slitter Technician Name Role Phone Unavailable, Physician Primary Care Physician Un available Encounter [facility] NBR [id number] Date(s): 12/18/22 - 12/18/22 [facility] [address] [place] [address]- Encounter Diagnosis Rhytides(Discharge Diagnosis) - 12/14/22 Discharge Disposition: Home or Self Care Attending Physician: Sanya Solo DO Assessment and Plan Future Appointments Problem List Condition Confirmation Course Effective Dates Status Health St [facility] Informant Rhytides Confirmed Active Physician Outpatient Note * [place]: MODIFY Sanya Solo, DO: PERFORM, MODIFY Sanya Solo, DO: MODIFY Event Display: Office Clinic Note Physician Authored Date: [id number] RUTH GARCIA :1970 Age:52 years Sex:Female Visit Date:12/18/2022 Chief Complaint Established- C-BOTOX History of Present Illness Established patient in the office today for cosmetic Botox treatment. Patient's last treatment was 06/11/2022 and she has 25??units. Patient is wanting the same area treated as in June. She was happy with the results. Review of Systems Negative for: no new cardiac, respiratory, GI, , hematologic, neurologic, psychological, allergic, traumatic or endocrine problems except as listed above Physical Exam GENERAL APPEARANCE:??The patient is awake, alert, and oriented and in no acute distress, Appears nutritionally sound, Healthy in appearance, Voice is strong, with no stridor or stertor, Handling secretions without difficulty.?PSYCH:??affect normal, good eye contact, oriented to person, oriented to place, oriented to time.?NEURO:??CN's II-XII grossly intact, Gait is normal, The patient has endpoint nystagmus only.?HEENT:??The patient is normocephalic with a normal facies with cranial nerves 2 through 12 bilaterally equal and intact. Pupils are equal and reactive to light with extraocular movements bilaterally equal and intact. There is no proptosis or enophthalmos,?SKIN:??normal across the head and neck.?MUSCULOSKELETAL:??normal gait and station.?? Procedure ?? Botox??The patient was placed in the facial plastic procedure room. Written consent was obtainedfor Botox administration with review of the risks and complications. The patient is feeling well today and has no complaints. The patient is placed in a semi-supine position on the treatment table with the exam room door open. The skin was wiped with alcohol.??20 Units of botulinum toxin were injected into the treatment areas of facial rhytids as requested by the patient. The procedure was free of complications and the patient was able to ambulate with stability,there was no bleeding upon completion of the procedure. The patient is encouraged to call with post- procedure questions.. Assessment/Plan 1.??Rhytides??L98.8 Problem List/Past Medical History Ongoing Rhytides Historical No qualifying data Medications No active medications Allergies No active allergies Electronically Signed on 12/18/22 11:29 AM Sanya Solo, DO Patient Care team information Care Team Personnel Name: Unavailable, Physician Position: No Access Member Role: Primary Care Physician Care Team Related Persons Name: SOLOMON GAUTAM Address: Home [address] [place] [address] Name: RISHABH ALVA
== END 2022-12-21 10:39 ==
LOC: DI 10:19
PROVIDERS: PCP Nurse Practitioner; Visit Provider Nurse Practitioner
DX: Z12.31 Encounter for screening mammogram for malignant neoplasm of breast (principal)
CPT/HCPCS: 77063; 77067

== ENCOUNTER 2023-02-25 04:30 | Outpatient (CLI) | payer OTHER, SELFPAY ==
[2023-02-25 07:31] LABS: ESR 13 mm/hr (0-30)
[2023-02-25 07:32] LABS: Abs Immature Grans 0.01 10^3/uL (0.0-0.06); Absolute Basophil Count 0.08 10^3/uL (0.0-0.2); Absolute Eosinophil Count 0.28 10^3/uL (0.0-0.7); Absolute Lymphocyte Count 1.33 10^3/uL (1.2-3.4); Absolute Monocyte Count 0.53 10^3/uL (0.1-0.8); Absolute Neutrophil Count 2.88 10^3/uL (1.2-6.7); Basophils % 1.6; Eosinophils % 5.5; HCT 42.2 % (36.0-46.0); HGB 14.2 g/dL (11.2-15.7); Immature Grans % 0.2; MCH 30.9 pg (27.0-33.0); MCHC 33.6 % (32.0-36.0); MCV 92 fL (80-95); MPV 8.9 fL (8.0-11.0); Monocytes % 10.4; Neutrophils % 56.3; Platelet Count 311 10^3/uL (130-400); RBC 4.59 10^6/uL (3.93-5.22); RDW 13.7 % (11.7-14.6); RDW-SD 46.8 fL; WBC 5.11 10^3/uL (4.4-10.8)
[2023-02-25 08:55] LABS: ALT 16 U/L (14-59); AST 11 U/L (15-37); Albumin 4.1 g/dL (3.4-5.0); Alkaline Phosphatase 60 U/L (46-116); BUN 14 mg/dL (7-18); Bilirubin, Total 0.4 mg/dL (0.2-1.0); CREATININE 0.8 mg/dL (0.55-1.02); Calcium 9.2 mg/dL (8.5-10.1); Calculated LDL 140 mg/dL (<100); Chloride 102 mmol/L (98-107); Cholesterol 233 mg/dL (<200); Estimated GFR 89.15 (mL/min/1.73m2); Glucose 102 mg/dL (74-106); HDL Cholesterol 77 mg/dL (40-60); Potassium 4.1 mmol/L (3.5-5.1); Sodium 139 mmol/L (136-145); Total Protein 8.6 g/dL (6.4-8.2); Triglyceride 83 mg/dL (<150)
[2023-02-25 09:12] LABS: C-Reactive Protein < 0.05 mg/dL (0.0-0.3)
== END 2023-02-25 04:31 | disposition home or self-care (01) ==
LOC: LBO 04:31
PROVIDERS: PCP Nurse Practitioner; Visit Provider Nurse Practitioner
DX: R10.9 Unspecified abdominal pain (principal); G89.29 Other chronic pain; E78.5 Hyperlipidemia, unspecified; K51.90 Ulcerative colitis, unspecified, without complications; Z13.6 Encounter for screening for cardiovascular disorders
CPT/HCPCS: 36415; 80053; 80061; 85652; 83735; 85025; 86140

== ENCOUNTER 2024-03-06 09:39 | Outpatient (CLI) | payer OTHER, SELFPAY ==
--- NOTE | 2024-03-06 08:30 | DI.RAD_ITS ---
Exam(s) XR KNEE LT 4V AP,LAT,ALYCE,PAT EXAM: XR KNEE LT 4V AP,LAT,ALYCE,PAT CLINICAL HISTORY: left knee pain. TECHNIQUE: 2D digital imaging was performed of the left knee. Four images were obtained. Merchant, AP, lateral and PA tunnel views were obtained. COMPARISON: No exams were available for comparison FINDINGS: BONES: No acute fracture is present. No bony destructive lesion is seen. JOINTS: The knee is normally aligned. There is a tiny joint effusion. No loose body. SOFT TISSUE: Normal. IMPRESSION: Very small joint effusion otherwise unremarkable examination. DATA REPOSITORY: RADIATION DOSE DELIVERED:
== END 2024-03-06 09:40 | disposition home or self-care (01) ==
LOC: DIORS 09:39
PROVIDERS: PCP Nurse Practitioner; Referring Provider Nurse Practitioner; Visit Provider Physician Assistant
DX: M25.562 Pain in left knee (principal)
CPT/HCPCS: 73564

== ENCOUNTER → 2024-03-13 19:51 | Outpatient (CLI) | payer OTHER, SELFPAY ==
--- NOTE | 2024-03-13 | DI.MRI_ITS ---
Exam(s) MR BRAIN WO EXAM: MR BRAIN WO CLINICAL HISTORY: EPISODIC TENSION HEADACHE MORE [id number] FAM HX HEART DISEASE Z82.49 TECHNIQUE: Multiplanar multisequence MRI of the brain was performed. COMPARISON: No exams were available for comparison FINDINGS: CEREBRAL PARENCHYMA: There is no evidence of intracranial hemorrhage, mass effect, or shift of midline structures. There are no extra-axial fluid collections. Ventricles are not enlarged or shifted. No evidence of cerebe llar tonsillar ectopia. There is no significant focal signal abnormality in the cerebellar hemispheres nor within the mike, m idbrain, and thalami. There is no abnormal signal abnormality in the periventricular white matter. No evidence of demyelin ating disease. There is no significant focal signal abnormality evident on diffusion imaging to suggest acute ischem ic event. PITUITARY GLAND: No mass nor parasellar abnormality. No obvious abnormality in the cavernous sinuses. FLOW VOIDS: The expected flow void are noted. No evidence of obvious aneurysm nor obvious vascular ma lformation. PARANASAL SINUSES: The visualized paranasal sinuses appear unremarkable. No obvious finding ORBITS: No obvious findings. IMPRESSION: No significant intracranial findings on this noninfused MRI scan of the brain. DATA REPOSITORY:
== END ==
PROVIDERS: PCP Nurse Practitioner; Visit Provider Nurse Practitioner
DX: G44.219 Episodic tension-type headache, not intractable (principal); Z82.49 Family history of ischemic heart disease and other diseases of the circulatory system
CPT/HCPCS: 70551

== ENCOUNTER 2024-05-04 22:30 | Outpatient (CLI) | payer OTHER, SELFPAY ==
--- NOTE | 2024-05-04 15:39 | DI.RAD_ITS ---
Exam(s) XR HIP PELVIS ADULT BL EXAM: XR HIP PELVIS ADULT BL CLINICAL HISTORY: bilateral hip pain. TECHNIQUE: 2D digital imaging was performed. Three views. COMPARISON: CR XR HIP RT COMPLETE AP PELVIS from 11/16/[address] ABDOMEN PELVIS W from 07/01/2022 FINDINGS: BONES: No acute fracture is present. No bony destructive lesion is seen. JOINTS: No dislocation present. SI joints and pubic symphysis are unremarkable. The hip joint spac es are maintained. No significant periarticular spurring. SOFT TISSUE: Normal. IMPRESSION: Unremarkable radiographs of the bilateral hips. DATA REPOSITORY: RADIATION DOSE DELIVERED:
== END 2024-05-04 22:31 | disposition home or self-care (01) ==
LOC: DIORS 22:37
PROVIDERS: PCP Nurse Practitioner; Visit Provider Physician Assistant
DX: M25.551 Pain in right hip (principal); M25.552 Pain in left hip
CPT/HCPCS: 73521

== ENCOUNTER 2024-06-29 10:57 | Outpatient (CLI) | payer OTHER, SELFPAY ==
--- NOTE | 2024-06-29 | DI.MAMMO_ITS ---
Exam(s) MAMMO SCREENING EXAM: MAMMO SCREENING CLINICAL HISTORY: SCREENING, Z12.31. TECHNIQUE: Bilateral full field digital CC and MLO mammographic images were obtained with 3D tomosyn thesis and utilizing computer aided detection (CAD). COMPARISON: Prior mammograms were reviewed. FINDINGS: There has been no significant change in the appearance and distribution of the fibroglandular tissue. Benign-appearing nodule medially in right breast is unchanged from prior studies. However, on the right breast MLO view there is a medial of center well-defined nodular density measur ing 4 x 5 mm this located 6 cm in from the nipple. Is possibly just related to a tortuous vessel. H owever recommend spot compression view. There are no malignant-appearing microcalcification groups in this region nor elsewhere in either janel ast. There is no significant architectural distortion nor skin thickening-retraction. IMPRESSION: 1. No radiographic evidence of malignancy in left breast. 2. Asymmetric density-possible nodule medial aspect right breast. Spot compression MLO view and ultr asound recommended. BI-RADS Category 0 - Incomplete: Need additional imaging evaluation Breast Density - Category B - Scattered areas of fibroglandular density Breast density Category C or D implies that the patient has dense breast tissue. Dense breast tissue can make it harder to find cancer on a mammogram. Dense breast tissue is also associated with an incr eased risk of breast cancer. This information about the result of the mammogram report was provided to the patient to raise their awareness. Use this report when you speak with the patient about their risks for breast cancer, which includes their family history. At that time, you may recommend additional screening tests (Ultrasoun d or MRI) as these tests may add significant information. A negative radiographic report should not delay biopsy if a dominant or clinically suspicious mass is present. Up to ten percent of cancers are not identified on mammography. A negative report may reinforce clinical impression. Adenosis and dense breasts may obscure an underlying neoplasm. False positive reports average 6 to 10%. Patient will receive a letter notifying them of these results.
== END 2024-06-29 11:17 ==
LOC: DI 10:58
PROVIDERS: PCP Nurse Practitioner; Visit Provider Nurse Practitioner
DX: Z12.31 Encounter for screening mammogram for malignant neoplasm of breast (principal)
CPT/HCPCS: 77063; 77067

== ENCOUNTER 2024-07-07 01:20 | Outpatient (CLI) | payer OTHER, SELFPAY ==
--- NOTE | 2024-07-07 | DI.MAMMO_ITS ---
Exam(s) MAMMO SCREEN CALL BACK UNI EXAM: MAMMO SCREEN CALL BACK UNI CLINICAL HISTORY: F/U MAMMO, ASYMMETRIC DENSITY, ? NODULE, RT,R92.8 TECHNIQUE: Spot compression views with tomographic imaging were performed. COMPARISON: Recent exam of 29 June 2024 and exams back to 2016 FINDINGS: No suspicious masses or suspicious microcalcifications are seen. No persistent abnormality is seen on the additional views performed. The findings are consistent wit h overlap of a tortuous vessel There has been no significant change from prior exams. IMPRESSION: BI-RADS Category 1, Negative Yearly screening mammography is recommended. Breast Density - Category B, scattered fibroglandular densities.
== END 2024-07-07 01:40 ==
LOC: DI 01:20
PROVIDERS: PCP Nurse Practitioner; Visit Provider Nurse Practitioner
DX: Z12.31 Encounter for screening mammogram for malignant neoplasm of breast (principal); R92.8 Other abnormal and inconclusive findings on diagnostic imaging of breast
CPT/HCPCS: 77063; 77067

== ENCOUNTER 2024-07-17 13:58 | Outpatient (REF) | payer OTHER, SELFPAY ==
[2024-07-17 13:46] LABS: Bilirubin Negative (Negative); Blood Large (Negative); Clarity Clear (Clear); Glucose Negative (Negative); Ketones Negative (Negative); Leukocyte Esterase Negative (Negative); Nitrite Negative (Negative); Urobilinogen 0.2 mg/dL (Up to 0.2)
[2024-07-17 14:04] LABS: Bacteria Rare HPF (Negative); C & S Indicated? C&S Done As Ordered; Casts Negative LPF (Negative); Crystals Negative HPF (Negative); Epithelial Cells Rare HPF (Negative); Mucus Negative (Negative); RBC 20-50 HPF (0-2); WBC 0-2 HPF (0-5)
== END 2024-07-17 13:59 | disposition home or self-care (01) ==
LOC: LBN 13:58
PROVIDERS: PCP Nurse Practitioner; Visit Provider Nurse Practitioner
DX: R82.90 Unspecified abnormal findings in urine (principal); R82.89 Other abnormal findings on cytological and histological examination of urine
CPT/HCPCS: 81003; 81015; 87086

== ENCOUNTER 2024-09-17 03:46 | Outpatient (CLI) | payer OTHER, SELFPAY ==
--- NOTE | 2024-09-17 08:32 | DI.MRI_ITS ---
Exam(s) MR LOWER JOINT BI WO EXAM: MR LOWER JOINT BI WO CLINICAL HISTORY: BILAT HIP PAIN,FEMOROACETABULAR IMPINGEMENT,M25.552,M25.859,M25.551 TECHNIQUE: Multiplanar multisequence MRI of the BILATERAL hips was performed. COMPARISON: CR XR HIP PELVIS ADULT BL from 05/04/2024 FINDINGS: RIGHT HIP: OSSEOUS/ARTICULATIONS:There is no evidence of fracture, bone contusion, nor avascular necrosis. There is no joint effusion in the hip. There are no significant osseous lesions. No obvious bony overgrowth at the anterior superior aspect of the femoral head-neck junction to sugge st cam-type AWILDA. There is mild lateral extension of the right acetabular rim which may suggest an element of pincer-ty pe AWILDA. There are few tiny degenerative subarticular cysts in the acetabular rim at this level. There are also tiny marginal right femoral head osteophytes. There is no obvious articular cartilage delam ination. There are no obvious synovial herniation pits along the femoral head-neck junction. LABRUM: There is some degenerative change in the labrum but without an obvious distinct labral tear. There is no evidence of paralabral cyst. TENDONS: There is significant signal abnormality at the gluteus minimus and medius tendon insertions upon the greater trochanter consistent with tendinitis and partial tearing. Ileopsoas: No abnormal signal. No tear. Medial thigh musculature: No signal abnormality. No tear. BURSAE: There is no evidence of trochanteric bursitis. There is no evidence of iliopsoas bursitis. ISCHIAL TUBEROSITY/HAMSTRING: There is no abnormal intraosseous signal in the ipsilateral ischial tub erosity nor tear of the common hamstrings tendon attachment site at this level. LEFT HIP: OSSEOUS/ARTICULATIONS:There is no evidence of fracture, bone contusion, nor avascular necrosis. There is no significant joint effusion in the left hip. There are no significant osseous lesions. No obvious bony overgrowth at the anterior superior aspect of the femoral head-neck junction to sugge st cam-type AWILDA. There is minimal lateral extension of the left acetabular rim. There are few tiny degenerative subart icular cysts in the acetabular rim at this level. There are no femoral head osteophytes on this side evident. There is no obvious articular cartilage delamination in the left hip joint. There are no obvious synovial herniation pits along the femoral head-neck junction. LABRUM: There is some degenerative surface change in the labrum but without an obvious distinct emmanuel l tear. There is no evidence of paralabral cyst. TENDONS: There is significant signal abnormality at the gluteus minimus and medius tendon insertions upon the greater trochanter consistent with tendinitis and partial tearing. Ileopsoas group: No abnormal signal. No tear. Medial thigh musculature: No signal abnormality. No tear. ISCHIAL TUBEROSITY/HAMSTRING: There is no abnormal intraosseous signal in the ipsilateral ischial tub erosity nor tear of the common hamstrings tendon attachment site at this level. IMPRESSION: 1. There is significant signal abnormality bilaterally at the gluteus medius and minimus insertion si marguerite on the bilateral greater trochanters consistent with tendinitis and partial tearing bilaterally. This is relatively symmetrical. 2. Mild pincer-type acetabular impingement, slightly more so on the right side. There are small degen erative subarticular cysts in the acetabular rims bilaterally at these levels. There are no degenerat ozzie subarticular cysts in the femoral heads and no prominent articular cartilage loss evident. There is no bone edema in the femoral heads nor synovial herniation pits evident. However, there are tiny e ccentric osteophytes on the right femoral head, best seen on T1 coronal images. 3. No evidence of bony overgrowth/osseous excrescence on the anterosuperior aspect of the femoral hea d-neck junction on either side to suggest cam-type AWILDA. 4. There is some labral surface irregularity but there are no obvious true labral tears nor evidence of paralabral cyst. DATA REPOSITORY:
--- NOTE | 2024-09-17 18:53 | DI.VRAD_ITS ---
PROCEDURE INFORMATION: Exam: MR Right Lower Extremity Joint Without Contrast; Hip Exam date and time: 09/17/2024 2:42 PM Age: 54 years old Clinical indication: Bilateral; Patient HX: Bilat hip pain, femoroacetabular impingement TECHNIQUE: Imaging protocol: Magnetic resonance imaging of the right lower extremity joint without contrast. Exam focused on the hip. COMPARISON: CT ABDOMEN PELVIS W 07/01/2022 12:05 PM FINDINGS: Bones/joints: There is slight extension of the acetabular rim laterally, suggestive of a pincer type impingement. . Mild osseous edema noted at the lateral rim of the acetabulum in the region of impingement. No femoral bone edema. No severe articular cartilage loss. No joint effusion. Labrum: There is a degenerative appearance of the labrum, without evidence of a tear. TENDONS: Tendons of iliopsoas group: Unremarkable. No evidence of tear. Tendons of medial compartment of thigh: Unremarkable. No evidence of tear. Tendons of lateral rotators of hip: Unremarkable. No evidence of tear. Tendons of gluteal group: There is mild edema noted at the tendinous insertion at the greater trochanter. Soft tissues: Gluteal insertion edema noted. IMPRESSION: 1. Findings suggestive of pincer type acetabular impingement with associated findings as described. Correlate with physical examination findings. 2. Edema within the tendinous insertion of the gluteal musculature, possible gluteal tendinitis. PROCEDURE INFORMATION: Exam: MR Left Lower Extremity Joint Without Contrast; Hip Exam date and time: 09/17/2024 2:42 PM Age: 54 years old Clinical indication: Bilateral; Patient HX: Bilat hip pain, femoroacetabular impingement TECHNIQUE: Imaging protocol: Magnetic resonance imaging of the left lower extremity joint without contrast. Exam focused on the hip. COMPARISON: CT ABDOMEN PELVIS W 07/01/2022 12:05 PM FINDINGS: Bones/joints: There is slight extension of the acetabular rim laterally, suggestive of a pincer type impingement. Mild osseous edema noted at the lateral rim of the acetabulum in the region of impingement. No femoral bone edema. No severe articular cartilage loss. No joint effusion. Labrum: No labral tear. TENDONS: Tendons of iliopsoas group: Unremarkable. No evidence of tear. Tendons of medial compartment of thigh: Unremarkable. No evidence of tear. Tendons of lateral rotators of hip: Unremarkable. No evidence of tear. Tendons of gluteal group: There is mild edema noted at the tendinous insertion at the greater trochanter. Soft tissues: Gluteal insertion edema noted. IMPRESSION: 1. Findings suggestive of pincer type acetabular impingement with associated findings as described. Correlate with physical examination findings. 2. Edema within the tendinous insertion of the gluteal musculature, possible gluteal tendinitis. Dictated and Authenticated by: Jacqui Dorantes MD. Ordering:ZORAN Gabriel MD
== END 2024-09-17 04:06 ==
LOC: DI 03:47
PROVIDERS: PCP Nurse Practitioner; Visit Provider Student in an Organized Health Care Education/Training Program
DX: M70.61 Trochanteric bursitis, right hip (principal); M70.62 Trochanteric bursitis, left hip
CPT/HCPCS: 73721

== ENCOUNTER 2024-12-09 09:55 | Outpatient (CLI) | payer OTHER, SELFPAY ==
--- NOTE | 2024-12-09 08:45 | DI.MRI_ITS ---
Exam(s) MR UPPER JOINT LT WO EXAM: MR UPPER JOINT LT WO CLINICAL HISTORY: Lt shoulder pain, M25.512, ? ROTATOR CUFF TEAR. TECHNIQUE: Multiplanar multisequence MRI was performed. COMPARISON: No exams were available for comparison FINDINGS: BONES: There is no fracture or contusion pattern. JOINTS: There are minimal degenerative changes seen at the acromioclavicular joint. There is mild th inning of the articular cartilage at the glenohumeral joint. TENDONS: Supraspinatus: There is a focus of hyperintense signal seen on the articular surface of the supraspin atus tendon at its insertion site (series 9001, image 7). The findings are most suggestive of a part ial articular surface tear. There is supraspinatus tendinosis. Infraspinatus: Unremarkable. Subscapularis: Unremarkable. Teres Minor: Unremarkable. Biceps and [place]: Unremarkable. MUSCLES: Unremarkable. GLENOID LABRUM: Unremarkable on this noncontrast examination. SOFT TISSUES: Unremarkable. LIGAMENTS: Unremarkable. OTHER: There is some fluid seen in the subacromial subdeltoid bursa. IMPRESSION: 1. Small partial articular surface tear of the supraspinatus tendon at its insertion site. Underlyin g mild supraspinatus tendinosis. 2. Fluid seen in the subacromial subdeltoid bursa which can be seen with a bursitis. 3. Mild degenerative changes seen at the acromioclavicular and glenohumeral joints. DATA REPOSITORY:
== END 2024-12-09 10:15 ==
LOC: DI 09:55
PROVIDERS: PCP Nurse Practitioner; Visit Provider Student in an Organized Health Care Education/Training Program
DX: M75.112 Incomplete rotator cuff tear or rupture of left shoulder, not specified as traumatic (principal)
CPT/HCPCS: 73221

== ENCOUNTER 2025-01-25 11:44 | Outpatient (CLI) | payer OTHER, SELFPAY ==
--- NOTE | 2025-01-25 15:32 | DI.RAD_ITS ---
Exam(s) XR FOOT LT COMPLETE EXAM: XR FOOT LT COMPLETE CLINICAL HISTORY: Left foot pain,m79.672. TECHNIQUE: 2D digital imaging was performed of the left foot. Three images were obtained. AP, obli que and lateral views were obtained. COMPARISON: CR XR FOOT RT COMPLETE from 01/25/2025 FINDINGS: BONES: No acute fracture is present. No bony destructive lesion is seen. JOINTS: No dislocation present. There is a hallux valgus deformity. The joint spaces are otherwise w ell maintained. SOFT TISSUE: Normal. IMPRESSION: Hallux valgus deformity. DATA REPOSITORY: RADIATION DOSE DELIVERED:
--- NOTE | 2025-01-25 15:32 | DI.RAD_ITS ---
Exam(s) XR FOOT RT COMPLETE EXAM: XR FOOT RT COMPLETE CLINICAL HISTORY: Right foot pain,m79.671. TECHNIQUE: 2D digital imaging was performed of the right foot. Three images were obtained. AP, obl ique and lateral views were obtained. COMPARISON: No exams were available for comparison FINDINGS: BONES: No acute fracture is present. No bony destructive lesion is seen. Postsurgical changes are see n 1st metatarsal. JOINTS: No dislocation present. The joint spaces are well maintained. SOFT TISSUE: Normal. IMPRESSION: Postsurgical changes in the 1st metatarsal otherwise unremarkable examination. DATA REPOSITORY: RADIATION DOSE DELIVERED:
== END 2025-01-25 12:04 ==
LOC: DI 11:44
PROVIDERS: PCP Nurse Practitioner; Visit Provider Podiatrist
DX: M79.671 Pain in right foot (principal); M79.672 Pain in left foot; M20.12 Hallux valgus (acquired), left foot; Z98.890 Other specified postprocedural states
CPT/HCPCS: 73630

== ENCOUNTER 2025-06-11 07:48 | Outpatient (CLI) | payer OTHER, SELFPAY ==
[2025-06-11 07:59] LABS: Abs Immature Grans 0.01 10^3/uL (0.0-0.06); HCT 40.7 % (36.0-46.0); HGB 13.2 g/dL (11.2-15.7); Immature Grans % 0.2 %; MCH 30.1 pg (27.0-33.0); MCHC 32.4 % (32.0-36.0); MCV 93 fL (80-95); MPV 9.0 fL (8.0-11.0); Platelet Count 338 10^3/uL (130-400); RBC 4.39 10^6/uL (3.93-5.22); RDW 12.7 % (11.7-14.6); RDW-SD 43.8 fL; WBC 5.77 10^3/uL (4.4-10.8)
[2025-06-11 08:16] LABS: Glucose Negative (Negative)
[2025-06-11 08:29] LABS: C & S Indicated? No; WBC Negative HPF (0-5)
[2025-06-11 09:19] LABS: ALT 14 U/L (14-59); AST 9 U/L (15-37); Albumin 4.0 g/dL (3.4-5.0); Alkaline Phosphatase 59 U/L (46-116); Anion Gap 8.6 mmol/L (3-11); BUN 16 mg/dL (7-18); Bilirubin, Total 0.6 mg/dL (0.2-1.0); CO2 29.4 mmol/L (21.0-32.0); Calcium 8.9 mg/dL (8.5-10.1); Calculated LDL 124 mg/dL (<100); Chloride 103 mmol/L (98-107); Cholesterol 197 mg/dL (<200); Estimated GFR 107.26 (mL/min/1.73m2); Glucose 89 mg/dL (74-106); HDL Cholesterol 55 mg/dL (>or=50); Magnesium 2.1 mg/dL (1.8-2.4); Potassium 3.7 mmol/L (3.5-5.1); Sodium 141 mmol/L (136-145); TSH 1.82 uIU/mL (0.36-3.74); Total Protein 8.0 g/dL (6.4-8.2); Triglyceride 91 mg/dL (<150); Vitamin D 25 Total 30 ng/mL (30-100)
== END 2025-06-11 07:49 | disposition home or self-care (01) ==
LOC: LBO 07:49
PROVIDERS: PCP Nurse Practitioner; Visit Provider Nurse Practitioner
DX: Z13.6 Encounter for screening for cardiovascular disorders (principal); K51.90 Ulcerative colitis, unspecified, without complications; E78.5 Hyperlipidemia, unspecified; Z00.00 Encounter for general adult medical examination without abnormal findings; E55.9 Vitamin D deficiency, unspecified; E03.8 Other specified hypothyroidism; R53.82 Chronic fatigue, unspecified
CPT/HCPCS: 36415; 80053; 80061; 82306; 81003; 81015; 83735; 84443; 85025

== ENCOUNTER 2025-06-11 09:26 | Day surgery (SDC) | payer OTHER, SELFPAY ==
[2025-06-11] VITALS (22 sets, daily range): BP systolic 95–130; BP diastolic 57–87; PULSE 49–72; RESP 9–17; TEMP 36.3–36.4; O2SAT 99–100; BMI 27.0
--- NOTE | 2025-06-11 07:06 | W.PM.DSUDISC ---
Date of service: 06/11/25 Discharge Plan Disposition Patient Disposition: Home Condition: Stable Discharge Details Attending Provider: Nicola Ivey Primary Care Provider: Ericka Rios Home Meds and New Rx's Prescriptions: New naproxen 250 mg tablet 250 - 500 mg PO BID PRN (Reason: moderate pain and swelling) Qty: 40 0RF oxycodone 5 mg tablet 5 - 10 mg PO .q4-6h MDD 30 mg PRN (Reason: severe pain) Qty: 12 0RF aspirin 81 mg capsule 81 mg PO DAILY 14 Days Qty: 14 0RF Continued albuterol sulfate 90 mcg/actuation HFA aerosol inhaler 2 puff IH QID valacyclovir 500 mg tablet 500 mg PO BID PRN Rx Instructions: Current med list: 1 tablet orally TID mometasone [Elocon] 0.1 % cream 1 applic TP DAILY PRN estradiol [Vagifem] 10 mcg tablet 10 mcg vaginal .COMPLEX Qty: 24 0RF Rx Instructions: 10 mcg vaginally twice weekly; cholecalciferol (vitamin D3) 50 mcg (2,000 unit) capsule 50 mcg PO DAILY clonazepam 0.5 mg tablet 0.5 mg PO DAILY PRN fluticasone propion-salmeterol [Advair Diskus] 1 EACH blister with device 1 ea Inhalation DAILY mesalamine [Lialda] 1.2 G tablet,delayed release (DR/EC) 1.2 g PO DAILY acetaminophen 500 mg Tablet 1,000 mg PO Q6H PRN Discontinued ibuprofen 600 mg tablet 600 mg PO Q8H PRN Discharge Instructions Additional Instructions: Surgery: Left hip endoscopy with iliotibial band release and trochanteric bursectomy 06/11/25 Activity: Weightbearing as tolerated. May use crutches or walker as needed for a few days. Gradually advance to full range of motion and activity over the next few weeks. No strengthening or vigorous activity for at least 6-8 weeks. A physical therapy prescription will be sent to start in about 3 weeks. Prescriptions: Aspirin 81 mg take 1 daily to prevent a blood clot for 2 weeks, starting tomorrow Naproxen 250 mg take 1-2 every 12 hours with a meal as needed for moderate pain (do not use ibuprofen while taking naproxen) Oxycodone 5 mg take 1-2 every 4-6 hours as needed for severe pain You may use [id number] Tylenol (acetaminophen) as needed for mild pain. These pain medications may be taken all at once or in different combinations as needed. Also, recommend Colace (docusate) as a stool softener as surgery and pain medicine cause constipation. You may try [id number] diphenhydramine (Benadryl) 25-50 mg nightly as a sleep aid Dressings: Leave dressing in place for 3 days. May then remove and leave open to air or cover incisions with Band-Aids. Leave the sticky Steri-Strips in place until they fall off or remove them after you shower. May shower after 5 days. Follow-up: 10-[address] Ivey You may take off the leg compression stockings this evening at home. You may also leave them on a few days longer if you have a history of leg swelling or edema. Let us know right away if you develop any redness, drainage, fevers, chest pain, or trouble breathing. Do not drink alcohol or drive for at least 24 hours after anesthesia. Please call the office during business hours with any questions or concerns. Stand Alone Forms: Anesthesia Discharge Inst., Amy Davis (U) Referrals: Nicola Ivey MD [ [facility] STAFF PHYSICIAN, Orthopaedic Surgical] - 06/23/25 2:45 pm Discharge Orders Discharge Orders: Discharge Order (Routine); Ordered 06/11/25 Ordered By: Evelia Chavira DS: Diagnosis Discharge Diagnosis (1) Trochanteric bursitis, left hip: Status: Acute (2) Iliotibial band syndrome of left side: Status: Acute
--- NOTE | 2025-06-11 07:14 | ROE_ITS ---
Operative Note Operative Note PRE-OP DIAGNOSIS: Left hip 1. Iliotibial band syndrome 2. Trochanteric bursitis 3. Gluteal tendinopathy POST-OP DIAGNOSIS: same PROCEDURE: Left hip endoscopic 1. Iiliotibial band release, CPT# 41897 2. Trochanteric bursectomy, CPT# 26438 SURGEON: Nicola Ivey DEFECTIVE CIGARETTE SLITTER: Evelia Chavira ANESTHESIA TYPE: Local By Surgeon and General LMA/ETT Refer to Anesthesia Record ESTIMATED BLOOD LOSS: 5 Patient was transported to: PACU Patient's condition: stable Indications: Please see complete medical record for details. Findings: Thickened and taut iliotibial band. Abundant inflamed trochanteric bursitis. Intact gluteal tendons. Procedure Description: In the operating room, general anesthesia was induced. The patient was positioned supine on the [facility] operating room table. All bony prominences were well-padded. Preoperative antibiotics were administered. The hip was prepped and draped in the usual sterile fashion. The correct patient, procedure, and side of the procedure were all verified prior to incision. 30 cc of 0.25% bupivacaine containing epinephrine was infiltrated about the subcutaneous tissues for the planned anterior lateral and distal anterolateral portals as well as deeply over the greater trochanter. A knife was used to incise the skin for the anterior lateral and distal anterolateral portals followed by blunt dissection subcutaneously. Under fluoroscopic guidance, a switching stick and arthroscope were inserted localizing the iliotibial band over the greater trochanter. Blunt dissection and the mechanical shaver were used to resect fat and overlying tissue about the center of the iliotibial band and carefully expose the anterior and posterior margins. Once there was ad equate exposure of the IT band, the greater trochanter was again localized under fluoroscopic guidance with a spinal needle inserted through the skin down to bone. This central area was marked using the radiofrequency ablator. A [place] blade was brought in and used to create a 2 cm longitudinal incision in line with the IT band fibers as well as extending it in a cruciate fashion with 2 cm incisions anteriorly and posteriorly. The radiofrequency ablator was used to achieve hemostasis. The mechanical shaver was then used to debride the IT band released edges exposing the trochanteric bursa. The mechanical shaver was then used to excise the trochanteric bursa taking care to protect musculature about the margins of the greater trochanter as well as neurovascular structures especially posteriorly. There was excellent visualization of the vastus lateralis as well as gluteus medius confirming appropriate bursa excision. The gluteus [place]ito tendon could also be seen. The hip was brought through range of motion including internal and external rotation and there was no impinging iliotibial band tissue or remaining pathologic bursa. The viewing and working portals were switched and appropriate IT band release, trochanteric bursa excision, and hemostasis confirmed. Suction was used to remove fluid from the endoscopic space. The portals were closed using 3-0 Monocryl in a buried fashion. Steri-Strips were applied over the incisions followed by Xeroform, 4 x 4 gauze, an ABD pad, and secured with tape. The patient awoke from anesthesia without complication and was transferred to the recovery room in a stable condition. Date of Procedure: 06/11/25
[2025-06-11] MEDS: Lactated Ringers 1,000 ML 30 ML IV (10:07)
--- NOTE | 2025-06-11 10:15 | DI.RAD_ITS ---
Exam(s) XR HIP LT IN OR EXAM: XR HIP LT IN OR CLINICAL HISTORY: IT BAND SYNDROME/GREATER TROCH BURSITIS LEFT HIP. TECHNIQUE: 2D digital imaging was performed. COMPARISON: No exams were available for comparison FINDINGS: Fluoroscopy was provided during orthopedic procedure on left hip. See procedure report for details. IMPRESSION: Radiation exposure index/cumulative dose:Jocelynn,r=0.1942mGy DATA REPOSITORY: RADIATION DOSE DELIVERED:
--- NOTE | 2025-06-11 10:44 | W.ANESPRE ---
General Info Date of Service Date Performed: 06/11/25 Height: 5 ft Weight: 62.8 kg Body Mass Index (BMI): 27.0 Surgical Procedure: Operation Date: 06/11/25 11:05 Proposed Procedure Side Surgeon p Endoscopic Iliotibial Band Release w/Trochanteric Bursectomy w/Possible Gluteal Tendon Repair Left Nicola Ivey MD Actual Procedure Side Surgeon p Endoscopic Iliotibial Band Release w/Trochanteric Bursectomy w/Possible Gluteal Tendon Repair Left Nicola Ivey MD Meds Allergies and Home Medications Allergies Allergy/AdvReac Type Severity Reaction Status Date / Time adhesive Allergy Intermediate Skin Rash Verified 06/11/25 09:57 cat dander Allergy Mild Wheezing Verified 06/11/25 09:57 nickel Allergy Mild Itching Verified 06/11/25 09:57 Sulfa (Sulfonamide Allergy Hives, Verified 06/11/25 09:57 Antibiotics) wheezing Home Medication ?Medication ?Instructions ?Recorded fluticasone 250 mcg-salmeterol 50 1 ea inhalation DAILY 07/12/14 mcg/dose blistr powdr for inhalation (Advair Diskus) mesalamine 1.2 gram tablet,delayed 1.2 g PO DAILY 07/12/14 release (Lialda) albuterol sulfate 90 mcg/actuation 2 puff inhalation QID 07/02/18 aerosol inhaler mometasone 0.1 % topical cream 1 applic topical DAILY PRN 11/02/19 (Elocon) valacyclovir 500 mg tablet 500 mg PO BID PRN 11/02/19 estradiol 10 mcg vaginal tablet 10 mcg vaginal .COMPLEX #24 tabs 02/14/22 (Vagifem) acetaminophen 500 mg tablet 1,000 mg PO Q6H PRN 07/01/22 cholecalciferol (vitamin D3) 50 50 mcg PO DAILY 02/06/23 mcg (2,000 unit) capsule clonazepam 0.5 mg tablet 0.5 mg PO DAILY PRN 02/06/23 ibuprofen 600 mg tablet 600 mg PO Q8H PRN 05/11/25 Current Visit Medications: Current Medications Generic Name Dose Route Start Last Admin Trade Name Freq PRN Reason Stop Dose Admin Ringer's Solution 1,000 mls @ 30 mls/hr 06/11/25 06:00 06/11/25 10:07 IV 06/11/25 23:59 30 mls/hr INFUSION KIM Administration Cefazolin Sodium/Dextrose 2 gm in 50 mls @ 100 mls/hr 06/11/25 06:00 Ancef Duplex IVPB 06/11/25 23:59 PREOP KIM Tranexamic Acid/Sodium Chloride 1,000 mg in 100 mls @ 600 mls/hr 06/11/25 06:00 IVPB 06/11/25 23:59 PREOP KIM IV Miscellaneous Supplies 1 each 06/11/25 06:00 Iv Access IV 06/11/25 23:59 DIRECTED KIM Oxycodone HCl 0 mg 06/11/25 07:06 Oxycodone 5 Mg Tab PO 07/11/25 07:05 Q3H PRN PRN Pain Sodium Chloride 0 ml 06/11/25 06:00 Normal Saline Flush 10 Ml Syr IV 06/11/25 23:59 PRN PRN Sodium Chloride 0 ml 06/11/25 06:00 Normal Saline 10 Ml Vial IJ 06/11/25 23:59 DIRECTED PRN Sterile Water 0 ml 06/11/25 06:00 Water,Injection,Sterile 10 Ml Vial IJ 06/11/25 23:59 DIRECTED PRN PFSH Active Problems Active Problems: Problem Status Onset Code Trochanteric bursitis, left hip Acute M70.62 Pain in right foot Acute M79.671 Plantar fasciitis, right Acute M72.2 Adhesive capsulitis of left shoulder Acute M75.02 Rotator cuff tear, left Acute M75.102 Iliotibial band syndrome of both sides Acute M76.31, M76.32 Greater trochanteric bursitis of both hips Acute M70.61, M70.62 Internal derangement of left knee Acute M23.92 Anxiety and depression Chronic F41.9, F32.A Vaginal dryness Acute N89.8 Encounter for screening for other viral diseases Acute Z11.59 Age-related facial wrinkles Acute L90.8 Trochanteric bursitis, right hip Acute M70.61 Femoral acetabular impingement Acute M25.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 History of bunionectomy of right great toe Tobacco Smoking/Tobacco Use Status: Former Tobacco Use Passive smoking exposure: No Alcohol Alcohol Intake: never Substance Use Substance use: Never Substance use type: does not use Prental History History 4 Para 4 Hx # Term Pregnancies Multiple births Hx # Pregnancies Ectopic pregnancies AB induced Hx Number of Living Children AB spontaneous Vital Signs and Lab Results Vital Signs Most Recent Vital Signs in EMR: Most Recent Vital Signs Pulse Resp BP Pulse Ox 66 17 130/87 100 06/11/25 09:40 06/11/25 09:40 06/11/25 09:40 06/11/25 09:40 Lab Results Complete Blood Count: WBC, (4.4-10.8) 5.77 10^3/uL Today, 07:43 RBC, (3.93-5.22) 4.39 10^6/uL Today, 07:43 Hgb, (11.2-15.7) 13.2 g/dL Today, 07:43 Hct, (36.0-46.0) 40.7 % Today, 07:43 Plt Count, (130-400) 338 10^3/uL Today, 07:43 Complete Metabolic Panel: Sodium, (136-145) 141 mmol/L Today, 07:43 Potassium, (3.5-5.1) 3.7 mmol/L Today, 07:43 Chloride, (98-107) 103 mmol/L Today, 07:43 Carbon Dioxide, (21.0-32.0) 29.4 mmol/L Today, 07:43 BUN, (7-18) 16 mg/dL Today, 07:43 Creatinine, (0.55-1.02) 0.6 mg/dL Today, 07:43 Est GFR (CKD-EPI 2020), (mL/min/1.73m2) 107.26 Today, 07:43 Magnesium, (1.8-2.4) 2.1 mg/dL Today, :43 Calcium, (8.5-10.1) 8.9 mg/dL Today, :43 Albumin, (3.4-5.0) 4.0 g/dL Today, :43 Glucose, (74-106) 89 mg/dL Today, : Liver Function Panel: ALT, (14-59) 14 U/L Today, : AST, (15-37) 9 U/L L Today, : Thyroid Panel: TSH, (0.36-3.74) 1.82 uIU/mL Today, :43 Anesthesia Assessment and Plan Anesthesia History Personal History: No History of Anesthesia Complications Family History: No Family History of Anesthesia Complications Exercise Tolerance Exercise Tolerance: Metabolic Equivalents>4 Pertinent Negatives Pertinent Negatives: No Symptoms of GERD Cardiac & Pulmonary Exam Cardiac Exam: Normal S1/S2 Heart Sounds Pulmonary Exam: Clear Bilateral Breath Sounds Implantable Cardiac Device Does patient have a Pacemaker or an ICD?: No Airway Exam Known Difficult Airway: No Mallampati Class: 2 Mouth Opening: Normal (> 3cm) Thyromental Distance: Greater than 3 cm Neck Range of Motion: Full ROM Neck Circumference: Normal Teeth Condition: Normal Dentition ASA Classification ASA Score: ASA 2 Emergency Case?: No NPO Status NPO Status: NPO Clears >2 hours, Solids >8 hours Status Status: Not Relevant due to Medical History Anesthesia Plan Resuscitation Status: Full Code Anesthesia Technique: General Anesthesia Airway Planned: Endotracheal Tube Monitors Used: Standard Monitors and SedLine
[2025-06-11] MEDS: ceFAZolin 2 GM/50 ML BAG IVPB (11:25)
[2025-06-11] MEDS: TRANEXAMIC ACID/SOD. CHL. 1,000 MG/100 ML BAG 600 MG IVPB (11:40)
[2025-06-11] MEDS: Bupivacaine 0.25% Pres-Free W/EPI 30 ML VIAL (11:45)
[2025-06-11] MEDS: EPINEPHrine 10 MG/10 ML ML (11:54)
[2025-06-11] MEDS: fentaNYL 100 MCG/2 ML VIAL IVP (12:40)
[2025-06-11] MEDS: HYDROmorphone 2 MG/ML SYR IVP ×2 (12:47→12:57)
--- NOTE | 2025-06-11 14:48 | W.ANESPOSTOP ---
Postoperative Evaluation Date, Time and Location Date Performed: 06/11/25 Time Performed: 14:48 Patient Location: Day Surgery Unit Vital Signs Most Recent Imported Vital Signs: Most Recent Vital Signs Temp Pulse Resp BP Pulse Ox 36.4 C L 63 16 116/57 L 100 06/11/25 14:10 06/11/25 14:10 06/11/25 14:10 06/11/25 14:10 06/11/25 14:10 Pain Score Most Recent Pain Score: Most Recent Pain Score Pain Level 2 06/11/25 13:30 Assessment Mental Status: Awake (Alert & Oriented to Patient Baseline) Airway and Respiratory Function: Patent airway with normal (patient baseline) respiratory exam Cardiovascular Function: Hemodynamically Stable Hydration Status: Adequately Hydrated Nausea & Vomiting: No Nausea or Vomiting Pain: Pain is tolerable per patient Peripheral Nerve Block: Patient did not receive a nerve block
== END 2025-06-11 14:56 | disposition home or self-care (01) ==
PROVIDERS: PCP Nurse Practitioner; Visit Provider Student in an Organized Health Care Education/Training Program
PROC: (CPT 29863; principal; 2025-06-11 10:45)
DX: M70.62 Trochanteric bursitis, left hip (principal); M76.32 Iliotibial band syndrome, left leg; M76.02 Gluteal tendinitis, left hip
CPT/HCPCS: 27062; 27305; 73501; J0131; J0690; J1100; J1171; J2003; J2371; J2405; J2704; J3010

== ENCOUNTER 2025-08-31 14:13 | Outpatient (REF) | payer OTHER, SELFPAY | END 2025-08-31 14:14 | disposition home or self-care (01) | LOC: LBN 14:13 | PROVIDERS: PCP Nurse Practitioner; Visit Provider Obstetrics & Gynecology | DX: R30.0 Dysuria (principal) | CPT/HCPCS: 87086 ==